=== PATIENT | female | born 1990 | race Caucasian/White ===

== ENCOUNTER 2023-07-21 19:35 | Outpatient (REF) | payer BC, SELFPAY ==
[2023-07-27 04:08] LABS: Age Gdln ACOG Testing Note (.); HPV Aptima Negative (Negative); IGP, Aptima HPV, rfx 16/18,45 Note (.)
== END 2023-07-21 19:36 | disposition home or self-care (01) ==
LOC: LAB 19:35
PROVIDERS: Visit Provider Obstetrics & Gynecology
DX: Z01.419 Encounter for gynecological examination (general) (routine) without abnormal findings (principal)
CPT/HCPCS: 87624; G0145

== ENCOUNTER 2024-07-25 21:26 | Outpatient (REF) | payer BC, SELFPAY ==
--- OUTSIDE RECORDS SUMMARY | 2024-07-25 21:29 | XMS_ITS | CCD ---
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 Name Role Phone PEPE JUAN Attending Unavailable MANJINDER ESTRADA Attending Unavailable DENNYS ., DR VARGAS Admitting Unavailable DENNYS ., DR VARGAS Attending Unavailable REQUEST, NONE LISTED Primary Care Unavaila ble DENNYS ., DR VARGAS Consulting Unavailable DENNYS ., DR VARGAS Admitting Unavailable DENNYS ., DR VARGAS Attending Unavailable REQUEST, DR NONE LISTED Primary Care Unavaila ble DENNYS ., DR VARGAS Consulting Unavailable DENNYS ., DR VARGAS Admitting Unavailable DENNYS ., DR VARGAS Attending Unavailable REQUEST, DR NONE LISTED Primary Care Unavaila ble DENNYS ., DR VARGAS Consulting Unavailable DENNYS ., DR VARGAS Admitting Unavailable DENNYS ., DR VARGAS Attending Unavailable REQUEST, DR NONE LISTED Primary Care Unavaila ble DENNYS ., DR VARGAS Consulting Unavailable ZIEBER, DR GOLD De Los Santos Consulting Unavailable DENNYS ., DR VARGAS Admitting Unavailable DENNYS ., DR VARGAS Attending Unavailable REQUEST, DR NONE LISTED Primary Care Unavaila ble DENNYS ., DR VARGAS Consulting Unavailable DENNYS ., DR VARGAS Admitting Unavailable DENNYS ., DR VARGAS Attending Unavailable REQUEST, DR NONE LISTED Primary Care Unavaila ble KARASIK ., DR GARCIA Consulting Unavailabl e DENNYS ., DR VARGAS Consulting Unavailable ZIEBER, DR GOLD De Los Santos Consulting Unavailable MANJINDER ESTRADA Consulting Unavailable REQUEST, DR RAMÍREZ LISTED Primary Care Unavaila ble MANJINDER ESTRADA Attending Unavailable MANJINDER ESTRADA Admitting Unavailable DENNYS ., DR VARGAS Admitting Unavailable DENNYS ., DR VARGAS Attending Unavailable KUNElvira, DR PEDRAZA Primary Care Unavailable DENNYS ., DR VARGAS Consulting Unavailable ZIEBER, DR GOLD De Los Santos Consulting Unavailable AURORA ., JODI Admitting Unavailable AURORA ., JODI Attending Unavailable REQUEST, DR NONE LISTED Primary Care Unavaila ble DENNYS ., DR VARGAS Admitting Unavailable DENNYS ., DR VARGAS Attending Unavailable KUNS, DR PEDRAZA Primary Care Unavailable DENNYS ., DR VARGAS Admitting Unavailable DENNYS ., DR VARGAS Attending Unavailable KUNS, DR PEDRAZA Primary Care Unavailable DENNYS ., DR VARGAS Consulting Unavailable DENNYS ., DR VARGAS Admitting Unavailable DENNYS ., DR VARGAS Attending Unavailable REQUEST, DR NONE LISTED Primary Care Unavaila ble DENNYS ., DR VARGAS Consulting Unavailable DENNYS ., DR VARGAS Consulting Unavailable REQUEST, DR NONE LISTED Primary Care Unavaila ble DENNYS ., DR VARGAS Attending Unavailable DENNYS ., DR VARGAS Admitting Unavailable ZIEBER, DR GOLD De Los Santos Consulting Unavailable DENNYS ., DR VARGAS Admitting Unavailable DENNYS ., DR VARGAS Attending Unavailable REQUEST, DR NONE LISTED Primary Care Unavaila ble DENNYS ., DR VARGAS Consulting Unavailable DENNYS ., DR VARGAS Admitting Unavailable DENNYS ., DR VARGAS Attending Unavailable KUNS, DR PEDRAZA Primary Care Unavailable DENNYS ., DR VARGAS Consulting Unavailable DENNYS ., DR VARGAS Admitting Unavailable DENNYS ., DR VARGSA Attending Unavailable KUNS, DR PEDRAZA Primary Care Unavailable ALVORDTON, DR SENIA Og Consulting Unavailable DENNYS ., DR VARGAS Consulting Unavailable DENNYS ., DR VARGAS Consulting Unavailable REQUEST, DR NONE LISTED Primary Care Unavaila ble DENNYS ., DR VARGAS Attending Unavailable DENNYS ., DR VARGAS Admitting Unavailable DENNYS ., DR VARGAS Admitting Unavailable DENNYS ., DR VARGAS Attending Unavailable REQUEST, DR NONE LISTED Primary Care Unavaila ble REQUEST, DR NONE LISTED Primary Care Unavaila ble NIRAV COOPER Admitting Unavailable NIRAV COOPER Attending Unavailable WEST, DR SENIA Og Consulting Unavailable DENNYS ., DR VARGAS Consulting Unavailable NIRAV COOPER Consulting Unavailable DENNYS ., DR VARGAS Admitting Unavailable DENNYS ., DR VARGAS Attending Unavailable REQUEST, DR NONE LISTED Primary Care Unavaila ble DENNYS ., DR VARGAS Consulting Unavailable ZIEBER, DR GOLD De Los Santos Consulting Unavailable DENNYS ., DR VARGAS Admitting Unavailable DENNYS ., DR VARGAS Attending Unavailable REQUEST, NONE LISTED Primary Care Unavaila ble DENNYS ., DR VARGAS Consulting Unavailable REQUEST, DR NONE LISTED Primary Care Unavaila ble DENNYS ., DR VARGAS Consulting Unavailable NIRAV COOPER Admitting Unavailable KENNETH, NIRAV Attending Unavailable ZIEBER, DR GOLD De Los Santos Consulting Unavailable NIRAV COOPER Consulting Unavailable DENNYS ., DR VARGAS Admitting Unavailable DENNYS ., DR VARGAS Attending Unavailable REQUEST, DR NONE LISTED Primary Care Unavaila ble DENNYS ., DR VARGAS Consulting Unavailable DENNYS ., DR VARGAS Admitting Unavailable DENNYS ., DR VARGAS Attending Unavailable REQUEST, DR NONE LISTED Primary Care Unavaila ble DENNYS ., DR VARGAS Consulting Unavailable REQUEST, DR NONE LISTED Primary Care Unavaila ble WINIFRED, JIAN Admitting Unavailable WINIFRED, JIAN Attending Unavailable ZIEBER, DR GOLD De Los Santos Consulting Unavailable GARRETT ., ÓSCAR Consulting Unavailable DENNYS ., DR VARGAS Admitting Unavailable DENYNS ., DR VARGAS Attending Unavailable REQUEST, DR NONE LISTED Primary Care Unavaila ble DENNYS ., DR VARGAS Consulting Unavailable DENNYS ., DR VARGAS Procedure Practitioner Unavail able NIRAV COOPER Consulting Unavailable BERNARD II, LIS Consulting Unavailable BOUBACAR, JENNIFFER Consulting Unavailable REQUEST, DR NONE LISTED Primary Care Unavaila ble KARASIK ., DR GARCIA Admitting Unavailabl e KARASIK ., DR GARCIA Attending Unavailabl e KARASIK ., DR GARCIA Consulting Unavailabl e WEST, DR SENIA Og Consulting Unavailable DENNYS ., DR VARGAS Consulting Unavailable ZIEBER, DR GOLD De Los Santos Consulting Unavailable DENNYS ., DR VARGAS Admitting Unavailable DENYNS ., DR VARGAS Attending Unavailable KUNS, DR PEDRAZA Primary Care Unavailable DENNYS ., DR VARGAS Consulting Unavailable DENNYS ., DR VARGAS Admitting Unavailable DENNYS ., DR VARGAS Attending Unavailable REQUEST, DR NONE LISTED Primary Care Unavaila ble DENNYS ., DR VARGAS Consulting Unavailable ZIEBER, DR GOLD De Los Santos Consulting Unavailable REQUEST, NONE LISTED Primary Care Unavaila ble KARASIK ., DR GARCIA Admitting Unavailabl e KARASIK ., DR GARCIA Attending Unavailabl e KARASIK ., DR GARCIA Consulting Unavailabl e DENNYS ., DR VARGAS Admitting Unavailable DENNYS ., DR VARGAS Attending Unavailable REQUEST, NONE LISTED Primary Care Unavaila zane KOCH ., DR VARGAS Consulting Unavailable DO Cale Monique Primary Care Provider [phone] Agnieszka, [employer] Sofy Suarez Emergency Provider 1( [phone] Sofy Aaron Attending Unavailable Sofy Aaron Admitting Unavailable Cale Monique Primary Care Unavailable DO Anselmo Rodney Attending Provider ALCIIA KOCH Attending Unavailable ALICIA KOCH Attending Unavailable CHINA PETER Attending Unavailable JODI SIMON Attending Unavailable YEN ROCHA Attending Unavailable Cale Monique DO Primary Care Provider China Peter NP Unavailable [phone] Allergies Allergy Classification Reported Allergen(s) Allergy Type Date of Onset Reaction(s) Facility (4 sources) Betamethasone; Translations: [BETAMETHASONE] Drug Allergy 1 Dermatitis, Swelling, Anaphylaxis [facility] Repository (1 source) Betamethasone Drug Allergy 3 [facility] Medications Current Medications Medication Drug Class(es) Dates Sig (Normalized) Sig (Original) amoxicillin 875 mg / clavulanate 125 mg oral tablet (2 sources) Penicillin-class Antibacterial Start: 04-15-2024 End: 04-25-2024 take 1 tablet by mouth in the morning amoxicillin-clav ulanate (Augmentin) 875-125 MG tablet Indications: Acute cough , Acute non-recurrent maxillary sinusitis Take 1 tablet (875 mg) by mouth in the morning and 1 tablet (875 mg) before bedtime. Do all this for 10 days. 20 tablet 04/15/2024 04/25/2024 Active citalopram 20 mg oral tablet (5 sources) Serotonin Reuptake Inhibitor Start: 07-21-2023 End: 07-20-2024 Citalopram Active 20 MG PO December 14, 2023 12:00am ibuprofen 200 mg oral capsule (9 sources) Nonsteroidal Anti-inflammatory Drug Start: 12-14-2023 take 1 capsule by mouth every six hours Ibuprofen (Motrin Ib) 200 mg capsule Active 200 MG PO Every 6 hours December 14, 2023 12:00am Start: 03-19-2023 take 1 tablet by bert th three times daily as needed ibuprofen 800 MG tablet Take 800 mg by mouth 3 (three) times a day as needed 03/19/2023 Active Start: 05-12-2018 End: 07-28-2018 take 600 mg by mouth every six hours Ibuprofen Discontinued 600 MG PO Every 6 hours 60 May 12, 2018 1:00am July 28, 2018 10:06pm Powderly (No Known Home Meds) (1 source) Start: 12-11-2023 Powderly (No Kn own Home Meds) Active December 11, 2023 12:00am Completed/Discontinued Medications Medication Drug Class(es) Dates Sig (Normalized) Sig (Original) acetaminophen 500 mg oral tablet (4 sources) Start: 05-12-2018 End: 07-28-2018 take 1000 mg by mouth every six hours Acetaminophen Discontinued 1000 MG PO Q6H 30 May 12, 2018 1:00am July 28, 2018 10:06pm acetaminophen 325 mg / HYDROcodone bitartrate 5 mg oral tablet (4 sources) Opioid Agonist Start: 05-12-2018 End: 07-28-2018 take 1 tablet by mouth every six hours Hydrocodone-Acetami nophen ([place]) 5-325 mg tablet Discontinued 1 TAB PO Q6H 14 3 May 12, 2018 July 28, 2018 10:06pm biotin 2.5 mg oral capsule (8 sources) Start: 07-28-2018 End: 12-11-2023 take 2500 ug by mouth once daily Biotin Discontinued 2500 MCG PO Daily July 28, 2018 1:00am December 11, 2023 10:39am Start: 04-23-2018 End: 05-12-2018 Biotin Discontinued April 23, 2018 12:00am May 12, 2018 3:25am Pnv Cmb#95-Ferrous Fumarate-Fa () 28 mg iron- 800 mcg Tablet (4 sources) Start: 04-23-2018 End: 05-12-2018 take 1 tablet by mouth once daily Pnv Cmb#95-Ferrous Fumarate-Fa () 28 mg iron- 800 mcg Tablet Discontinued 1 TAB PO Daily April 23, 2018 12:00am May 12, 2018 3:25am [id number]-Rzuhi-Omeg3s (4 sources) Start: 07-28-2018 End: 12-11-2023 take 1 tablet by mouth once daily 113-Rsjp-Xnuux-Omeg3s Discontinued 1 TAB PO Daily July 28, 2018 1:00am December 11, 2023 10:39am Problems Active Problems Problem Classification Problem Date Documented Date Episodic/Chronic Abdominal pain (9 sources) Pelvic and perineal pain; Translations: [Unspecified abdominal pain] Onset: 05-08-2022 Episodic Cardiac dysrhythmias (4 sources) Palpitations; Translations: [Palpitations] Onset: 08-11-2022 Episodic Conditions associated with dizziness or vertigo (2 sources) Dizziness; Translations: [Dizziness] Onset: 09-15-2022 Episodic Deficiency and other anemia (4 sources) Anemia, unspecified; Translations: [ANEMIA UNSPECIFIED] Onset: 08-31-2022 Episodic Early or threatened labor (4 sources) labor without delivery, third trimester; Translations: [ LABOR W/O DELIVERY 3RD TRI] Onset: 09-03-2022 Episodic Hemorrhage during ; abruptio placenta; placenta previa (12 sources) Antepartum hemorrhage, unspecified, unspecified trimester; Translations: [Threatened ] Onset: 03-15-2022 Episodic Hypertension complicating ; childbirth and the puerperium (4 sources) Unspecified pre-eclampsia, third trimester; Translations: [UNS PRE-ECLAMPSIA THIRD TRIMESTER] Onset: 09-28-2022 Episodic Immunizations and screening for infectious disease (3 sources) Encounter for screening for infections with a predominantly sexual mode of transmission; Translations: [Encounter for screening for human papillomavirus (HPV)] Onset: 04-08-2022 Episodic Joint disorders and dislocations; trauma-related (7 sources) Derangement of right knee; Translations: [Unspecified internal derangement of right knee] 12-14-2023 Chronic Menstrual disorders (4 sources) Irregular menstruation, unspecified; Translations: [IRREGULAR MENSTRUATION UNSPECIFIED] Onset: 04-05-2022 Chronic Miscellaneous mental health disorders (3 sources) depression; Translations: [ depression] 12-14-2023 Episodic Other complications of ; puerperium affecting management of mother (1 source) Endocrine, nutritional and metabolic diseases complicating childbirth; Translations: [ENDOCRN NUTR MET DZ COMP CHILDBIRTH] Onset: 10-18-2022 Episodic Other complications of ; puerperium affecting management of mother (4 sources) Maternal care for other (suspected) abnormality and damage, not applicable or unspecified; Translations: [MAT CARE OTH ABN DAMGE NA/UNS] Onset: 08-19-2022 Episodic Other complications of (1 source) Obesity complicating , second trimester; Translations: [OBESITY COMP SECOND TRI] Onset: 05-10-2022 Chronic Other complications of (2 sources) Endocrine, nutritional and metabolic diseases complicating , third trimester; Translations: [ENDOCRN NUTR MET DZ COMP PG 3RD TRI] Onset: 09-30-2022 Episodic Other complications of (1 source) Maternal care for other known or suspected poor growth, third trimester, not applicable or unspecified; Translations: [MAT CARE OTH WY FTL GRTH 3RD TM UNS] Onset: 10-18-2022 Episodic Other complications of (5 sources) Other specified related conditions, third trimester; Translations: [OTH SPEC PREG RELATED COND 3RD TRI] Onset: 09-07-2022 Episodic Other complications of (1 source) Supervision of with other poor reproductive or obstetric history, third trimester; Translations: [SUP PG OTH POOR REPROD/OB HX 3RD TM] Onset: 10-01-2022 Episodic Other complications of (5 sources) Supervision of other high risk pregnancies, third trimester; Translations: [SUP OTH HIGH RISK 3RD TRI] Onset: 09-08-2022 Episodic Other female genital disorders (1 source) Other specified noninflammatory disorders of vagina; Translations: [OTH SPEC NONINFLAMMATORY D/O VAGINA] Onset: 08-01-2022 Episodic Other lower respiratory disease (2 sources) Cough; Translations: [Acute cough] 04-15-2024 Episodic Other non-traumatic joint disorders (1 source) Pain in right knee; Translations: [Pain in right knee] Onset: 12-11-2023 Episodic Other nutritional; endocrine; and metabolic disorders (1 source) Obesity, unspecified; Translations: [OBESITY UNSPECIFIED] Onset: 05-10-2022 Chronic Other and delivery including normal (20 sources) Encounter for routine follow-up; Translations: [Single live ] Onset: 03-07-2022 Episodic Other screening for suspected conditions (not mental disorders or infectious disease) (15 sources) Abnormal electrocardiogram [ECG] [EKG]; Translations: [Encounter for other screening follow-up] Onset: 04-08-2022 Episodic Other upper respiratory infections (2 sources) Acute maxillary sinusitis; Translations: [Acute maxillary sinusitis, unspecified] 04-15-2024 Episodic Previous (1 source) Maternal care for low transverse scar from previous delivery; Translations: [MAT CARE LW TRANS SCAR PREV C/S DEL] Onset: 10-18-2022 Episodic Residual codes; unclassified (1 source) 37 weeks gestation of ; Translations: [37 WEEKS GESTATION OF ] Onset: 10-18-2022 Episodic Residual codes; unclassified (1 source) Personal history of other specified conditions; Translations: [PERSONAL HISTORY OTH SPEC CONDITION] Onset: 10-18-2022 Episodic Residual codes; unclassified (1 source) Family history of other endocrine, nutritional and metabolic diseases; Translations: [FAM HX OTH ENDOCRN NUTRIT METAB DZ] Onset: 10-18-2022 Episodic Residual codes; unclassified (1 source) Type A blood, Rh negative; Translations: [TYPE A BLOOD RH NEGATIVE] Onset: 10-18-2022 Episodic Residual codes; unclassified (1 source) 36 weeks gestation of ; Translations: [36 WEEKS GESTATION OF ] Onset: 10-01-2022 Episodic Residual codes; unclassified (1 source) 35 weeks gestation of ; Translations: [35 WEEKS GESTATION OF ] Onset: 09-24-2022 Episodic Residual codes; unclassified (5 sources) Personal history of other complications of , childbirth and the puerperium; Translations: [PERS HX OTH COMP PG CHILDBIRTH AND PP] Onset: 09-02-2022 Episodic Residual codes; unclassified (1 source) 34 weeks gestation of ; Translations: [34 WEEKS GESTATION OF ] Onset: 09-18-2022 Episodic Residual codes; unclassified (1 source) 33 weeks gestation of ; Translations: [33 WEEKS GESTATION OF ] Onset: 09-13-2022 Episodic Residual codes; unclassified (1 source) 31 weeks gestation of ; Translations: [31 WEEKS GESTATION OF ] Onset: 08-24-2022 Episodic Residual codes; unclassified (1 source) Unspecified blood type, Rh negative; Translations: [UNSPECIFIED BLOOD TYPE RH NEGATIVE] Onset: 08-16-2022 Episodic Residual codes; unclassified (1 source) 29 weeks gestation of ; Translations: [29 WEEKS GESTATION OF ] Onset: 08-16-2022 Episodic Residual codes; unclassified (4 sources) RhD negative; Translations: [Unspecified blood type, Rh negative] 05-12-2018 Episodic Residual codes; unclassified (4 sources) H/O: chemotherapy; Translations: [Personal history of antineoplastic chemotherapy] 05-12-2018 Episodic Sprains and strains (4 sources) Sprain of right knee; Translations: [Sprain of unspecified site of right knee, initial encounter] 12-11-2023 Episodic Thyroid disorders (1 source) Disorder of thyroid, unspecified; Translations: [DISORDER OF THYROID UNSPECIFIED] Onset: 10-18-2022 Episodic Unclassified (2 sources) follow up echo and Holter monitor Onset: 09-15-2022 Past or Other Problems Problem Classification Problem Date Documented Da te Episodic/Chronic Other complications of (1 source) Other specified related conditions, unspecified trimester; Translations: [OTH SPEC PREG RELATED COND UNS TRI] Onset: 07-15-2022 Episodic Other complications of (1 source) Other specified related conditions, second trimester; Translations: [OTH SPEC PREG RELATED COND 2ND TRI] Onset: 05-10-2022 Episodic Residual codes; unclassified (1 source) 16 weeks gestation of ; Translations: [16 WEEKS GESTATION OF ] Onset: 05-10-2022 Episodic Results Test Name Value Interpretation Reference Range Facility XR knee RT 4V*on 12-11-2023 XR knee RT 4V* [place] [address] XRay Report Signed Patient: Corbin Umana MR#: [id number] : 1990 Acct:[id number] Age/Sex: 33 / F ADM Date: 12/11/23 Loc: ER Room: Type: [facility] ER Attending Dr: Copies to: CORY Rangel Ordering Provider: CORY Rangel Date of Service: 12/11/23 XR/XR knee RT 4V*: Extremity Injury, Lower 4 views RIGHT knee plain film COMPARISON: None HISTORY: RIGHT knee injury. Anterior knee pain ACUTE FINDINGS: No acute findings DEGENERATIVE CHANGE: Unremarkable SOFT TISSUE FINDINGS: Unremarkable JOINT EFFUSION: None POSTOP CHANGES: None BONE MINERALIZATION: Adequate XR/XR knee RT 4V* IMPRESSION: No acute findings Impression dictated by: Armani Tierney M.D.12/11/2023 12:03 PM Dictation Location: [place] [address] Transcribed By: [facility] 12/11/23 1203 Dictated By: Armani Tierney DO 12/11/23 1202 Signed By: 12/11/23 1203 Normal [facility] CBC AUTO DIFFon 10-01-2022 BASO # 0.0 103/ul Normal 0.0-0.1 [facility] Comment on above: Performed By: #### A 1C #### [facility] [address] [place] [address] Dr. Jeri Connell Basophils/100 WBC (Bld) 0.4 % Normal 0.2-2.0 [facility] Comment on above: Performed By: #### A 1C #### [facility] [address] [address] [address] Jeri Connell EO # 0.1 103/ul Normal 0.0-0.7 [facility] Comment on above: Performed By: #### A 1C #### [facility] [address] [address] [address] Jeri Connell Eosinophils/100 WBC (Bld) 0.8 % Critically low 0.9-7.0 [facility] Comment on above: Performed By: #### A 1C #### [facility] [address] [address] [address] Jeri Connell Erythrocyte distribution width (RBC) [Ratio] 15.1 % Critically high 11.0-15.0 [facility] Comment on above: Performed By: #### A 1C #### [facility] [address] [place] [address] Dr. Jeri Connell Hematocrit (Bld) [Volume fraction] 24.8 % Critically low 36.0-48.0 [facility] Comment on above: Performed By: #### A 1C #### [facility] [address] [address] [address] Jeri Connell Hemoglobin (Bld) [Mass/Vol] 8.4 g/dL Critically low 12.0-16.0 [facility] Comment on above: Performed By: #### A 1C #### [facility] [address] [address] [address] Jeri Connell IG # 0.04 10e3/ul Critically high 0.00-0.03 [facility] Comment on above: Performed By: #### A 1C #### [facility] [address] [address] [address] Jeri Connell IG % 0.5 % Normal 0.0-0.5 [facility] Comment on above: Performed By: #### A 1C #### [facility] [address] [place] [address] Dr. Jeri Connell LYMPH # 1.3 103/ul Normal 1.2-3.8 [facility] Comment on above: Performed By: #### A 1C #### [facility] [address] [place] [address] Dr. Jeri Connell Lymphocytes/100 WBC (Bld) 16.9 % Critically low 20.5-60.0 [facility] Comment on above: Performed By: #### A 1C #### [facility] [address] [place] [address] Dr. Jeri Connell MANUAL DIFF REQ NO Normal [facility] Comment on above: Performed By: #### A 1C #### [facility] [address] [address] [address] Jeri Connell MCH (RBC) [Entitic mass] 32.2 pg Normal 26.7-34.0 [facility] Comment on above: Performed By: #### A 1C #### [facility] [address] [place] [address] Dr. Jeri Connell MCHC (RBC) [Mass/Vol] 33.9 g/dL Normal 29.9-35.2 [facility] Comment on above: Performed By: #### A 1C #### [facility] [address] [address] [address] Jeri Connell MCV (RBC) [Entitic vol] 95.0 fL Normal 81.0-99.0 [facility] Comment on above: Performed By: #### A 1C #### [facility] [address] [address] [address] Jeri Connell MONO # 0.5 103/ul Normal 0.3-0.8 [facility] Comment on above: Performed By: #### A 1C #### [facility] [address] [place] [address] Dr. Jeri Connell Monocytes/100 WBC (Bld) 6.5 % Normal 1.7-12.0 [facility] Comment on above: Performed By: #### A 1C #### [facility] [address] [place] [address] Dr. Jeri Connell NEUT # 6.0 103/ul Normal 1.4-6.5 [facility] Comment on above: Performed By: #### A 1C #### [facility] [address] [place] [address] Dr. Jeri Connell Neutrophils/100 WBC (Bld) 74.9 % Normal 43.0-75.0 [facility] Comment on above: Performed By: #### A 1C #### [facility] [address] [place] [address] Dr. Jeri Connell Platelet mean volume (Bld) [Entitic vol] 10.8 fL Normal 9.5-13.5 [facility] Comment on above: Performed By: #### A 1C #### [facility] [address] [place] [address] Dr. Jeri Connell PLT 183 103/ul Normal 150-450 [facility] Comment on above: Performed By: #### A 1C #### [facility] [address] [place] [address] Dr. Jeri Connell RBC 2.61 106/ul Critically low 4.20-5.40 [facility] Comment on above: Performed By: #### A 1C #### [facility] [address] [place] [address] Dr. Jeri Connell WBC 7.9 103/ul Normal 4.0-11.0 [facility] Comment on above: Performed By: #### A 1C #### [facility] [address] [place] [address] Dr. Jeri Connell CBC AUTO DIFFon 09-30-2022 BASO # 0.0 103/ul Normal 0.0-0.1 [facility] Comment on above: Performed By: #### G LU1HR #### [facility] [address] [place] [address] Dr. Jeri Connell Basophils/100 WBC (Bld) 0.3 % Normal 0.2-2.0 [facility] Comment on above: Performed By: #### G LU1HR #### [facility] [address] [place] [address] Dr. Jeri Connell EO # 0.1 103/ul Normal 0.0-0.7 [facility] Comment on above: Performed By: #### G LU1HR #### [facility] [address] [place] [address] Dr. Jeri Connell Eosinophils/100 WBC (Bld) 0.6 % Critically low 0.9-7.0 [facility] Comment on above: Performed By: #### G LU1HR #### [facility] [address] [place] [address] Dr. Jeri Connell Erythrocyte distribution width (RBC) [Ratio] 14.6 % Normal 11.0-15.0 [facility] Comment on above: Performed By: #### G LU1HR #### [facility] [address] [place] [address] Dr. Jeri Connell Hematocrit (Bld) [Volume fraction] 32.9 % Critically low 36.0-48.0 [facility] Comment on above: Performed By: #### G LU1HR #### [facility] [address] [place] [address] Dr. Jeri Connell Hemoglobin (Bld) [Mass/Vol] 11.3 g/dL Critically low 12.0-16.0 [facility] Comment on above: Performed By: #### G LU1HR #### [facility] [address] [address] [address] Jeri Connell IG # 0.05 10e3/ul Critically high 0.00-0.03 [facility] Comment on above: Performed By: #### G LU1HR #### [facility] [address] [place] [address] Dr. Jeri Connell IG % 0.5 % Normal 0.0-0.5 [facility] Comment on above: Performed By: #### G LU1HR #### [facility] [address] [address] [address] Jeri Connell LYMPH # 1.7 103/ul Normal 1.2-3.8 [facility] Comment on above: Performed By: #### G LU1HR #### [facility] [address] [place] [address] Dr. Jeri Connell Lymphocytes/100 WBC (Bld) 18.2 % Critically low 20.5-60.0 [facility] Comment on above: Performed By: #### G LU1HR #### [facility] [address] [place] [address] Dr. Jeri Connell MANUAL DIFF REQ NO Normal [facility] Comment on above: Performed By: #### G LU1HR #### [facility] [address] [place] [address] Dr. Jeri Connell MCH (RBC) [Entitic mass] 31.7 pg Normal 26.7-34.0 [facility] Comment on above: Performed By: #### G LU1HR #### [facility] [address] [place] [address] Dr. Jeri Connell MCHC (RBC) [Mass/Vol] 34.3 g/dL Normal 29.9-35.2 [facility] Comment on above: Performed By: #### G LU1HR #### [facility] [address] [place] [address] Dr. Jeri Connell MCV (RBC) [Entitic vol] 92.4 fL Normal 81.0-99.0 [facility] Comment on above: Performed By: #### G LU1HR #### [facility] [address] [place] [address] Dr. Jeri Connell MONO # 0.7 103/ul Normal 0.3-0.8 [facility] Comment on above: Performed By: #### G LU1HR #### [facility] [address] [place] [address] Dr. Jeri Connell Monocytes/100 WBC (Bld) 7.1 % Normal 1.7-12.0 [facility] Comment on above: Performed By: #### G LU1HR #### [facility] [address] [place] [address] Dr. Jeri Connell NEUT # 7.0 103/ul Critically high 1.4-6.5 [facility] Comment on above: Performed By: #### G LU1HR #### [facility] [address] [place] [address] Dr. Jeri Connell Neutrophils/100 WBC (Bld) 73.3 % Normal 43.0-75.0 [facility] Comment on above: Performed By: #### G LU1HR #### [facility] [address] [place] [address] Dr. Jeri Connell Platelet mean volume (Bld) [Entitic vol] 10.8 fL Normal 9.5-13.5 [facility] Comment on above: Performed By: #### G LU1HR #### [facility] [address] [place] [address] Dr. Jeri Connell PLT 226 103/ul Normal 150-450 [facility] Comment on above: Performed By: #### G LU1HR #### [facility] [address] [place] [address] Dr. Jeri Connell RBC 3.56 106/ul Critically low 4.20-5.40 [facility] Comment on above: Performed By: #### G LU1HR #### [facility] [address] [place] [address] Dr. Jeri Connell WBC 9.6 103/ul Normal 4.0-11.0 [facility] Comment on above: Performed By: #### G LU1HR #### [facility] [address] [place] [address] Dr. Jeri Connell CULTURE URINEon 09-30-2022 CULTURE URINE Culture Observations : NO GROWTH. Normal [facility] Comment on above: Performed By: #### U RCX #### [facility] [address] [place] [address] Dr. Jeri Connell DRUG SCREEN RAPID (URINE)on 09-30-2022 AMP Negative Normal NEGATIVE [facility] Comment on above: Performed By: #### D RUGRPD #### [facility] [address] [place] [address] Dr. Jeri Connell BAR Negative Normal NEGATIVE [facility] Comment on above: Performed By: #### D RUGRPD #### [facility] [address] [place] [address] Dr. Jeri Connell BUP Negative Normal NEGATIVE [facility] Comment on above: Performed By: #### D RUGRPD #### [facility] [address] [place] [address] Dr. Jeri Connell BZO Negative Normal NEGATIVE [facility] Comment on above: Performed By: #### D RUGRPD #### [facility] [address] [place] [address] Dr. Jeri Connell PATRICIA Negative Normal NEGATIVE [facility] Comment on above: Performed By: #### D RUGRPD #### [facility] [address] [place] [address] Dr. Jeri Connell CUT-OFFS SEE BELOW Normal [facility] Comment on above: Result Comment: AMP (Amphetamine): 500ng/mL, BAR (Barbituates): 200 ng/mL, BZO (Benzodiazepines): 150 ng/mL, BUP (Buprenorphine): 10 ng/mL, PATRICIA (Cocaine): 150 ng/mL, mAMP (Methamphetamine): 500 ng/mL, MTD (Methadone): 200 ng/mL, OPI (Opiates): 100 ng/mL, OXY (Oxycodone): 100 ng/mL, PCP (Phencyclidine): 25 ng/mL, PPX (Propoxyphene): 300 ng/mL, THC (Cannabinoids): 50 ng/mL, TCA (Trycyclic Antidepressants): 300 ng/mL Performed By: #### D RUGRPD #### [facility] [address] [place] [address] Dr. Jeri Connell DRUG CUT HEADER DRUG CLASS TEST SYSTEM CUT-OFF CONCENTRATIONS ARE FOLLOWS: Normal [facility] Comment on above: Performed By: #### D RUGRPD #### [facility] [address] [place] [address] Dr. Jeri Connell mAMP Negative Normal NEGATIVE [facility] Comment on above: Performed By: #### D RUGRPD #### [facility] [address] [place] [address] Dr. Jeri Connell MTD Negative Normal NEGATIVE [facility] Comment on above: Performed By: #### D RUGRPD #### [facility] [address] [place] [address] Dr. Jeri Connell OPI Negative Normal NEGATIVE [facility] Comment on above: Performed By: #### D RUGRPD #### [facility] [address] [place] [address] Dr. Jeri Connell OXY Negative Normal NEGATIVE [facility] Comment on above: Performed By: #### D RUGRPD #### [facility] [address] [place] [address] Dr. Jeri Connell PCP Negative Normal NEGATIVE [facility] Comment on above: Performed By: #### D RUGRPD #### [facility] [address] [place] [address] Dr. Jeri Connell PPX Negative Normal NEGATIVE [facility] Comment on above: Performed By: #### D RUGRPD #### [facility] [address] [place] [address] Dr. Jeri Connell TCA Negative Normal NEGATIVE [facility] Comment on above: Performed By: #### D RUGRPD #### [facility] [address] [place] [address] Dr. Jeri Connell THC Negative Normal NEGATIVE [facility] Comment on above: Performed By: #### D RUGRPD #### [facility] [address] [place] [address] Dr. Jeri Connell TYPE AND SCREENon 09-30-2022 TYPE AND SCREEN Antibody Screen POSITIVE Blood Bank Notes probable anti-d due to rhig admin. at 28weeks, further work up at physicians Blood Bank Notes request ABO Rh Typing A Rh Negative Normal [facility] Comment on above: Performed By: #### T NS #### [facility] [address] [place] [address] Dr. Jeri Connell UA (CLEAN/CATCH) TREAD CUTTER/MICRO I F IND.on 09-30-2022 Bilirubin Ql (U) Negative Normal NEGATIVE [facility] Comment on above: Performed By: #### A 1C #### [facility] [address] [place] [address] Dr. Jeri Connell Clarity (U) CLEAR Normal CLEAR [facility] Comment on above: Performed By: #### A 1C #### [facility] [address] [place] [address] Dr. Jeri Connell Color (U) LT. YELLOW Normal YELLOW [facility] Comment on above: Performed By: #### A 1C #### [facility] [address] [place] [address] Dr. Jeri Connell Glucose Ql (U) Negative Normal NEGATIVE [facility] Comment on above: Performed By: #### A 1C #### [facility] [address] [place] [address] Dr. Jeri Connell Hemoglobin Ql (U) Negative Normal NEGATIVE [facility] Comment on above: Performed By: #### A 1C #### [facility] [address] [place] [address] Dr. Jeri Connell Ketones Ql (U) Negative Normal NEGATIVE [facility] Comment on above: Performed By: #### A 1C #### [facility] [address] [place] [address] Dr. Jeri Connell LEUKOCYTES MODERATE Abnormal NEGATIVE [facility] Comment on above: Performed By: #### A 1C #### [facility] [address] [place] [address] Dr. Jeri Connell Nitrite Ql (U) Negative Normal NEGATIVE [facility] Comment on above: Performed By: #### A 1C #### [facility] [address] [place] [address] Dr. Jeri Connell pH (U) 6.0 [pH] Normal 5-9 [facility] Comment on above: Performed By: #### A 1C #### [facility] [address] [place] [address] Dr. Jeri Connell SPEC GRAVITY 1.020 Normal 1.005-<=1.025 [facility] Comment on above: Performed By: #### A 1C #### [facility] [address] [place] [address] Dr. Jeri Connell UA PROTEIN Negative Normal NEGATIVE/ TRACE [facility] Comment on above: Performed By: #### A 1C #### [facility] [address] [place] [address] Dr. Jeri Connell UR MICRO IND INDICATED Normal [facility] Comment on above: Performed By: #### A 1C #### [facility] [address] [place] [address] Dr. Jeri Connell Urobilinogen Qn (U) 0.2 {Joshua'U}/dL Normal 0.2 - 1. 0 [facility] Comment on above: Performed By: #### A 1C #### [facility] [address] [place] [address] Dr. Jeri Connell URINE MICROSCOPIC ONLYon BACTERIA SMALL Abnormal NONE SEEN [facility] Comment on above: Performed By: #### A 1C #### [facility] [address] [place] [address] Dr. Jeri Connell Bacteria identified Cx Nom (U) INDICATED Normal [facility] Comment on above: Performed By: #### A 1C #### [facility] [address] [place] [address] Dr. Jeri Connell CA OX CRYSTALS RARE Normal [facility] Comment on above: Performed By: #### A 1C #### [facility] [address] [place] [address] Dr. Jeri Connell CAST NONE SEEN Normal NONE SEEN [facility] Comment on above: Performed By: #### A 1C #### [facility] [address] [place] [address] Dr. Jeri Connell Crystals LM Nom (Urine sed) SEEN Abnormal NONE SEEN [facility] Comment on above: Performed By: #### A 1C #### [facility] [address] [place] [address] Dr. Jeri Connell Epithelial cells LM Ql (Urine sed) FEW Abnormal NONE SEEN /RARE [facility] Comment on above: Performed By: #### A 1C #### [facility] [address] [place] [address] Dr. Jeri Connell MUCOUS NONE SEEN Normal NONE SEEN [facility] Comment on above: Performed By: #### A 1C #### [facility] [address] [place] [address] Dr. Jeri Connell RBC 0-2 Normal 0-2 [facility] Comment on above: Performed By: #### A 1C #### [facility] [address] [place] [address] Dr. Jeri Connell WBC 10-20 Abnormal NONE SEEN [facility] Comment on above: Performed By: #### A 1C #### [facility] [address] [place] [address] Dr. Jeri Connell US PREG BIOPHY W NON STRESSo n 09-27-2022 US PREG BIOPHY W NON STRESS EXAMINATION: US PREG BIOPHY W NON STRESS HISTORY: History of complication of , childbirth and/or puerperium COMPARISON: Ultrasound biophysical 09/17/2022 FINDINGS: BREATHING MOVEMENTS: 2.0 GROSS BODY MOVEMENTS: 2.0 TONE: 2.0 QUALITATIVE AMNIOTIC FLUID VOLUME: 2.0 PRESENTATION: CEPHALIC HEART RATE: 137.8 bpm bpm. AMNIOTIC FLUID VOLUME: 15.3 cm GESTATIONAL AGE: 36 weeks 1 days CONCLUSION: Total biophysical profile score 8.0. Electronically authenticated by: GOLD JEFF Date: 2022-09-27 09:35 Normal [facility] GROUP B STREP CULTUREon 08-27 S. agalactiae Ag Ql (Unsp spec) Culture Observations: NEGATIVE FOR GROUP B STREPTOCOCCUS. Normal [facility] Comment on above: Performed By: #### D RUGRPD #### [facility] [address] [address] [address] Jeri Connell PREG BIOPHY W NON STRESSo n 09-18-2022 US PREG BIOPHY W NON STRESS EXAMINATION: US PREG BIOPHY W NON STRESS HISTORY: History of complication of , childbirth and/or puerperium COMPARISON: Ultrasound biophysical 09/10/2022 FINDINGS: BREATHING MOVEMENTS: 2.0 GROSS BODY MOVEMENTS: 2.0 TONE: 2.0 QUALITATIVE AMNIOTIC FLUID VOLUME: 2.0 PRESENTATION: CEPHALIC HEART RATE: 145.9 bpm bpm. AMNIOTIC FLUID VOLUME: 14.7 cm GESTATIONAL AGE: 35 weeks 1 days CONCLUSION: Total biophysical profile score 8.0. Electronically authenticated by: GOLD JEFF Date: 2022-09-18 05:56 Normal [facility] US PREG GROWTHon 09-18-2022 US PREG GROWTH EXAMINATION: US PREG GROWTH HISTORY: Patient currently COMPARISON: Ultrasound growth 09/04/2022 FINDINGS: Heart Rate: 145.9 bpm Number: 1.0 Position: CEPHALIC Amniotic Fluid Volume: 14.7 cm Maximum Vertical Pocket: 4.7 cm BIOMETRY: BPD: 8.3 cm cm; 33 weeks 4 days HC: 31.0 cmcm; 34 weeks 4 days AC: 32.0 cm cm; 35 weeks 6 days FL: 7.0 cm cm; 35 weeks 6 days EFW: 2691.7 grams; 58% FL/AC: 21.9 FL/BPD: 84.0 HC/AC: 1.0 GESTATIONAL AGE: Age by EDC: 35 weeks 1 days BRAULIO by EDC: 10/21/2022 Age by US: 35 weeks 0 days BRAULIO by US: 10/22/2022 IMPRESSION: 1. Single live intrauterine with growth detailed above. Electronically authenticated by: GOLD JEFF Date: 2022-09-18 05:57 Normal [facility] Office Visiton 09-15-2022 Follow-up visit [id number] Corbin Umana 1990 F Date Provider Department Center 09/15/2022 PEPE BRAX[facility] Family History Problem Relation Age of Onset Coronary artery disease Maternal Grandmother Other Maternal Grandmother Hypertension Maternal Grandmother Atrial fibrillation Maternal Grandfather Other Maternal Grandfather Family Status - Relation Status Age at Maternal Grandmother Maternal Grandfather Level of Service:80524 [place] OFFICE/OUTPATIENT ESTABLISHED LOW MDM 20-29 MIN Reason for Visit and Comments: Palpitations [] Dizziness [] follow up echo and Holter monitor [Other] Normal [facility] US PREG BIOPHY W NON STRESSo n 09-13-2022 US PREG BIOPHY W NON STRESS EXAMINATION: US PREG BIOPHY W NON STRESS HISTORY: History of complication of , childbirth and/or puerperium COMPARISON: Ultrasound biophysical 09/03/2022 FINDINGS: BREATHING MOVEMENTS: 2.0 GROSS BODY MOVEMENTS: 2.0 TONE: 2.0 QUALITATIVE AMNIOTIC FLUID VOLUME: 2.0 PRESENTATION: CEPHALIC HEART RATE: 146.7 bpm bpm. AMNIOTIC FLUID VOLUME: 16.2 cm GESTATIONAL AGE: 34 weeks 1 days CONCLUSION: Total biophysical profile score 8.0. Electronically authenticated by: GOLD JEFF Date: 2022-09-13 09:04 Normal [facility] US PREG BIOPHY W NON STRESSo n 09-06-2022 US PREG BIOPHY W NON STRESS EXAMINATION: US PREG BIOPHY W NON STRESS HISTORY: History of complication of , childbirth and/or puerperium COMPARISON: Ultrasound biophysical 09/03/2022 FINDINGS: BREATHING MOVEMENTS: 2.0 GROSS BODY MOVEMENTS: 2.0 TONE: 2.0 QUALITATIVE AMNIOTIC FLUID VOLUME: 2.0 PRESENTATION: CEPHALIC HEART RATE: 149.2 bpm bpm. AMNIOTIC FLUID VOLUME: 12.2 cm GESTATIONAL AGE: 33 weeks 1 days CONCLUSION: Total biophysical profile score 8.0. Electronically authenticated by: GOLD JEFF Date: 2022-09-06 21:29 Normal [facility] CBC AUTO DIFFon 09-04-2022 BASO # 0.0 103/ul Normal 0.0-0.1 [facility] Comment on above: Performed By: #### C BC #### [facility] [address] [address] [address] Jeri Connell Basophils/100 WBC (Bld) 0.4 % Normal 0.2-2.0 [facility] Comment on above: Performed By: #### C BC #### [facility] [address] [address] [address] Jeri Connell EO # 0.1 103/ul Normal 0.0-0.7 [facility] Comment on above: Performed By: #### C BC #### [facility] [address] [place] [address] Dr. Jeri Connell Eosinophils/100 WBC (Bld) 0.6 % Critically low 0.9-7.0 [facility] Comment on above: Performed By: #### C BC #### [facility] [address] [place] [address] Dr. Jeri Connell Erythrocyte distribution width (RBC) [Ratio] 14.1 % Normal 11.0-15.0 [facility] Comment on above: Performed By: #### C BC #### [facility] [address] [place] [address] Dr. Jeri Connell Hematocrit (Bld) [Volume fraction] 31.3 % Critically low 36.0-48.0 [facility] Comment on above: Performed By: #### C BC #### [facility] [address] [place] [address] Dr. Jeri Connell Hemoglobin (Bld) [Mass/Vol] 10.7 g/dL Critically low 12.0-16.0 [facility] Comment on above: Performed By: #### C BC #### [facility] [address] [place] [address] Dr. Jeri Connell IG # 0.07 10e3/ul Critically high 0.00-0.03 [facility] Comment on above: Performed By: #### C BC #### [facility] [address] [place] [address] Dr. Jeri Connell IG % 0.8 % Critically high 0.0-0.5 [facility] Comment on above: Performed By: #### C BC #### [facility] [address] [place] [address] Dr. Jeri Connell LYMPH # 1.2 103/ul Normal 1.2-3.8 [facility] Comment on above: Performed By: #### C BC #### [facility] [address] [place] [address] Dr. Jeri Connell Lymphocytes/100 WBC (Bld) 14.2 % Critically low 20.5-60.0 [facility] Comment on above: Performed By: #### C BC #### [facility] [address] [place] [address] Dr. Jeri Connell MANUAL DIFF REQ NO Normal [facility] Comment on above: Performed By: #### C BC #### [facility] [address] [place] [address] Dr. Jeri Connell MCH (RBC) [Entitic mass] 31.5 pg Normal 26.7-34.0 [facility] Comment on above: Performed By: #### C BC #### [facility] [address] [place] [address] Dr. Jeri Connell MCHC (RBC) [Mass/Vol] 34.2 g/dL Normal 29.9-35.2 [facility] Comment on above: Performed By: #### C BC #### [facility] [address] [place] [address] Dr. Jeri Connell MCV (RBC) [Entitic vol] 92.1 fL Normal 81.0-99.0 [facility] Comment on above: Performed By: #### C BC #### [facility] [address] [place] [address] Dr. Jeri Connell MONO # 0.7 103/ul Normal 0.3-0.8 [facility] Comment on above: Performed By: #### C BC #### [facility] [address] [place] [address] Dr. Jeri Connell Monocytes/100 WBC (Bld) 8.2 % Normal 1.7-12.0 [facility] Comment on above: Performed By: #### C BC #### [facility] [address] [place] [address] Dr. Jeri Connell NEUT # 6.3 103/ul Normal 1.4-6.5 [facility] Comment on above: Performed By: #### C BC #### [facility] [address] [place] [address] Dr. Jeri Connell Neutrophils/100 WBC (Bld) 75.8 % Critically high 43.0-75.0 [facility] Comment on above: Performed By: #### C BC #### [facility] [address] [place] [address] Dr. Jeri Connell Platelet mean volume (Bld) [Entitic vol] 10.1 fL Normal 9.5-13.5 [facility] Comment on above: Performed By: #### C BC #### [facility] [address] [place] [address] Dr. Jeri Connell PLT 209 103/ul Normal 150-450 [facility] Comment on above: Performed By: #### C BC #### [facility] [address] [place] [address] Dr. Jeri Connell RBC 3.40 106/ul Critically low 4.20-5.40 [facility] Comment on above: Performed By: #### C BC #### [facility] [address] [place] [address] Dr. Jeri Connell WBC 8.3 103/ul Normal 4.0-11.0 [facility] Comment on above: Performed By: #### C BC #### [facility] [address] [place] [address] Dr. Jeri Connell LDHon 09-04-2022 LDH 128 U/L Normal 81-234 [facility] Comment on above: Performed By: #### D RUGRPD #### [facility] [address] [place] [address] Dr. Jeri Connell PROF 14(COMP METB)on 023 Albumin [Mass/Vol] 2.6 g/dL Critically low 3.4-5.0 [facility] Comment on above: Performed By: #### D RUGRPD #### [facility] [address] [place] [address] Dr. Jeri Connell Albumin/Globulin [Mass ratio] 0.7 {ratio} Normal [facility] Comment on above: Performed By: #### D JAMAALRPD #### [facility] [address] [place] [address] Dr. Jeri Connell ALP [Catalytic activity/Vol] 96 U/L Normal 46-116 [facility] Comment on above: Performed By: #### D RUGRPD #### [facility] [address] [address] [address] Jeri Connell ALT [Catalytic activity/Vol] 14 U/L Normal 14-59 [facility] Comment on above: Performed By: #### D RUGRPD #### [facility] [address] [address] [address] Jeri Connell Anion gap [Moles/Vol] 11.7 mmol/L Normal [facility] Comment on above: Performed By: #### D RUGRPD #### [facility] [address] [place] [address] Dr. Jeri Connell AST [Catalytic activity/Vol] 11 U/L Critically low 15-37 [facility] Comment on above: Performed By: #### D RUGRPD #### [facility] [address] [place] [address] Dr. Jeri Connell Bilirubin [Mass/Vol] 0.2 mg/dL Normal 0.2-1.0 [facility] Comment on above: Performed By: #### D RUGRPD #### [facility] [address] [place] [address] Dr. Jeri Connell Calcium [Mass/Vol] 8.2 mg/dL Critically low 8.5-10.1 [facility] Comment on above: Performed By: #### D RUGRPD #### [facility] [address] [place] [address] Dr. Jeri Connell Chloride [Moles/Vol] 107 mmol/L Normal 98-107 [facility] Comment on above: Performed By: #### D RUGRPD #### [facility] [address] [place] [address] Dr. Jeri Connell CO2 [Moles/Vol] 21.8 mmol/L Normal 21.0-32.0 [facility] Comment on above: Performed By: #### D RUGRPD #### [facility] [address] [place] [address] Dr. Jeri Connell Creatinine [Mass/Vol] 0.56 mg/dL Normal 0.55-1.02 [facility] Comment on above: Performed By: #### D RUGRPD #### [facility] [address] [place] [address] Dr. Jeri Connell EGFR-AF [place] >60 Normal >=60 [facility] Comment on above: Performed By: #### D RUGRPD #### [facility] [address] [address] [address] Jeri Connell EGFR-NON AF [place] >60 Normal >=60 [facility] Comment on above: Performed By: #### D RUGRPD #### [facility] [address] [place] [address] Dr. Jeri Connell Globulin (S) [Mass/Vol] 3.7 g/dL Normal [facility] Comment on above: Performed By: #### D RUGRPD #### [facility] [address] [place] [address] Dr. Jeri Connell Glucose [Mass/Vol] 102 mg/dL Normal 74-106 [facility] Comment on above: Performed By: #### D RUGRPD #### [facility] [address] [place] [address] Dr. Jeri Connell Potassium [Moles/Vol] 3.5 mmol/L Normal 3.5-5.1 [facility] Comment on above: Performed By: #### D RUGRPD #### [facility] [address] [place] [address] Dr. Jeri Connell Protein [Mass/Vol] 6.3 g/dL Critically low 6.4-8.2 [facility] Comment on above: Performed By: #### D RUGRPD #### [facility] [address] [place] [address] Dr. Jeri Connell Sodium [Moles/Vol] 137 mmol/L Normal 136-145 [facility] Comment on above: Performed By: #### D RUGRPD #### [facility] [address] [place] [address] Dr. Jeri Connell Urea nitrogen [Mass/Vol] 4.0 mg/dL Critically low 7.0-18.0 [facility] Comment on above: Performed By: #### D RUGRPD #### [facility] [address] [place] [address] Dr. Jeri Connell Urea nitrogen/Creatinine [Mass ratio] 7.1 mg/mg Normal [facility] Comment on above: Performed By: #### D RUGRPD #### [facility] [address] [place] [address] Dr. Jeri Connell PROTIMEon 09-04-2022 INR Coag (PPP) [Relative time] {INR} Normal [facility] Comment on above: Performed By: #### G LU1HR #### [facility] [address] [place] [address] Dr. Jeri Connell INR GUIDELINES SEE BELOW Normal [facility] Comment on above: Result Comment: SHANIKA RED INR: 2.0 - 3.0 CONDITIONS NOT LISTED BELOW 2.5 - 3.5 FOR PROSTHETIC HEART VALVE REPLACEMENT 2.5 - 3.5 RECURRENT THROMBOSIS Performed By: #### G LU1HR #### [facility] [address] [place] [address] Dr. Jeri Connell PT Coag (PPP) [Time] 9.8 s Normal 9.0-11.6 [facility] Comment on above: Performed By: #### G LU1HR #### [facility] [address] [place] [address] Dr. Jeri Connell PTTon 09-04-2022 aPTT Coag (Bld) [Time] 23.8 s Normal 22.3-36.2 [facility] Comment on above: Performed By: #### G LU1HR #### [facility] [address] [place] [address] Dr. Jeri Connell UA (CLEAN/CATCH) TREAD CUTTER/MICRO I F IND.on 09-04-2022 Bilirubin Ql (U) Negative Normal NEGATIVE [facility] Comment on above: Performed By: #### D RUGRPD #### [facility] [address] [place] [address] Dr. Jeri Connell Clarity (U) CLEAR Normal CLEAR [facility] Comment on above: Performed By: #### D RUGRPD #### [facility] [address] [address] [address] Jeri Connell Color (U) LT. YELLOW Normal YELLOW [facility] Comment on above: Performed By: #### D RUGRPD #### [facility] [address] [place] [address] Dr. Jeri Connell Glucose Ql (U) Negative Normal NEGATIVE [facility] Comment on above: Performed By: #### D RUGRPD #### [facility] [address] [place] [address] Dr. Jeri Connell Hemoglobin Ql (U) Negative Normal NEGATIVE [facility] Comment on above: Performed By: #### D RUGRPD #### [facility] [address] [place] [address] Dr. Jeri Connell Ketones Ql (U) Negative Normal NEGATIVE [facility] Comment on above: Performed By: #### D RUGRPD #### [facility] [address] [place] [address] Dr. Jeri Connell LEUKOCYTES Negative Normal NEGATIVE [facility] Comment on above: Performed By: #### D RUGRPD #### [facility] [address] [place] [address] Dr. Jeri Connell Nitrite Ql (U) Negative Normal NEGATIVE [facility] Comment on above: Performed By: #### D RUGRPD #### [facility] [address] [place] [address] Dr. Jeri Connell pH (U) 7.0 [pH] Normal 5-9 [facility] Comment on above: Performed By: #### D RUGRPD #### [facility] [address] [address] [address] Jeri Connell SPEC GRAVITY 1.010 Normal 1.005-<=1.025 [facility] Comment on above: Performed By: #### D RUGRPD #### [facility] [address] [place] [address] Dr. Jeri Connell UA PROTEIN Negative Normal NEGATIVE/ TRACE [facility] Comment on above: Performed By: #### D RUGRPD #### [facility] [address] [address] [address] Jeri Connell UR MICRO IND NOT INDICATED Normal [facility] Comment on above: Performed By: #### D RUGRPD #### [facility] [address] [address] [address] Jeri Connell Urobilinogen Qn (U) 0.2 {Joshua'U}/dL Normal 0.2 - 1. 0 [facility] Comment on above: Performed By: #### D RUGRPD #### [facility] [address] [address] [address] Jeri Cnonell URIC ACID SERUMon 09-04-2022 Urate [Mass/Vol] 4.3 mg/dL Normal 2.6-6.0 [facility] Comment on above: Performed By: #### D RUGRPD #### [facility] [address] [place] [address] Dr. Jeri Connell US PREG CERVICAL LENGTHon US PREG CERVICAL LENGTH EXAMINATION: US PREG GROWTH, US PREG CERVICAL LENGTH HISTORY: History of complication of , childbirth and/or puerperium COMPARISON: 07/08/2022 FINDINGS: Heart Rate: 141.4 bpm Amniotic Fluid Volume: 17.6 cm Number: 1.0 Position: Cephalic presentation, longitudinal lie Cervical length, 4.2 cm, closed Maximum Vertical Pocket: 6.1 cm cm 2.8 cm cm 5.3 cm cm 3.3 cm cm BIOMETRY: BPD: 8.0 cm cm; 32 weeks 1 days; 16% HC: 30.1 cmcm; 33 weeks 2 days, 16% AC: 29.0 cm cm; 33 weeks 0 days, 43% FL: 6.4 cm cm; 33 weeks 0 days; 30.8 % % EFW: 2086.4 grams, 4 lbs. 10 oz., 31% FL/AC: 22.0 FL/BPD: 79.7 HC/AC: 1.0 GESTATIONAL AGE: Age by EDC: 33 weeks 2 days BRAULIO by EDC: 10/21/2022 Age by US: 32 weeks 6 days BRAULIO by US: 10/24/2022 IMPRESSION: Normal interval growth Closed cervix measuring 4.2 cm Electronically authenticated by: SENAI JENNIFER Date: 2022-09-04 13:01 Normal [facility] CBC AUTO DIFFon 08-31-2022 BASO # 0.0 103/ul Normal 0.0-0.1 [facility] Comment on above: Performed By: #### C BC #### [facility] [address] [address] [address] Jeri Connell Basophils/100 WBC (Bld) 0.3 % Normal 0.2-2.0 [facility] Comment on above: Performed By: #### C BC #### [facility] [address] [address] [address] Jeri Connell EO # 0.1 103/ul Normal 0.0-0.7 [facility] Comment on above: Performed By: #### C BC #### [facility] [address] [address] [address] Jeri Connell Eosinophils/100 WBC (Bld) 0.7 % Critically low 0.9-7.0 [facility] Comment on above: Performed By: #### C BC #### [facility] [address] [place] [address] Dr. Jeri Connell Erythrocyte distribution width (RBC) [Ratio] 13.7 % Normal 11.0-15.0 [facility] Comment on above: Performed By: #### C BC #### [facility] [address] [place] [address] Dr. Jeri Connell Hematocrit (Bld) [Volume fraction] 31.1 % Critically low 36.0-48.0 [facility] Comment on above: Performed By: #### C BC #### [facility] [address] [address] [address] Jeri Connell Hemoglobin (Bld) [Mass/Vol] 10.6 g/dL Critically low 12.0-16.0 [facility] Comment on above: Performed By: #### C BC #### [facility] [address] [address] [address] Jeri Connell IG # 0.11 10e3/ul Critically high 0.00-0.03 [facility] Comment on above: Performed By: #### C BC #### [facility] [address] [place] [address] Dr. Jeri Connell IG % 1.1 % Critically high 0.0-0.5 [facility] Comment on above: Performed By: #### C BC #### [facility] [address] [place] [address] Dr. Jeri Connell LYMPH # 1.5 103/ul Normal 1.2-3.8 [facility] Comment on above: Performed By: #### C BC #### [facility] [address] [place] [address] Dr. Jeri Connell Lymphocytes/100 WBC (Bld) 14.7 % Critically low 20.5-60.0 [facility] Comment on above: Performed By: #### C BC #### [facility] [address] [place] [address] Dr. Jeri Connell MANUAL DIFF REQ NO Normal [facility] Comment on above: Performed By: #### C BC #### [facility] [address] [place] [address] Dr. Jeri Connell MCH (RBC) [Entitic mass] 31.7 pg Normal 26.7-34.0 [facility] Comment on above: Performed By: #### C BC #### [facility] [address] [place] [address] Dr. Jeri Connell MCHC (RBC) [Mass/Vol] 34.1 g/dL Normal 29.9-35.2 [facility] Comment on above: Performed By: #### C BC #### [facility] [address] [place] [address] Dr. Jeri Connell MCV (RBC) [Entitic vol] 93.1 fL Normal 81.0-99.0 [facility] Comment on above: Performed By: #### C BC #### [facility] [address] [place] [address] Dr. Jeri Connell MONO # 0.8 103/ul Normal 0.3-0.8 [facility] Comment on above: Performed By: #### C BC #### [facility] [address] [address] [address] Jeri Connell Monocytes/100 WBC (Bld) 8.2 % Normal 1.7-12.0 [facility] Comment on above: Performed By: #### C BC #### [facility] [address] [address] [address] Jeri Connell NEUT # 7.5 103/ul Critically high 1.4-6.5 [facility] Comment on above: Performed By: #### C BC #### [facility] [address] [place] [address] Dr. Jeri Connell Neutrophils/100 WBC (Bld) 75.0 % Normal 43.0-75.0 [facility] Comment on above: Performed By: #### C BC #### [facility] [address] [place] [address] Dr. Jeri Connell Platelet mean volume (Bld) [Entitic vol] 10.2 fL Normal 9.5-13.5 [facility] Comment on above: Performed By: #### C BC #### [facility] [address] [place] [address] Dr. Jeri Connell PLT 228 103/ul Normal 150-450 [facility] Comment on above: Performed By: #### C BC #### [facility] [address] [place] [address] Dr. Jeri Connell RBC 3.34 106/ul Critically low 4.20-5.40 [facility] Comment on above: Performed By: #### C BC #### [facility] [address] [place] [address] Dr. Jeri Connell WBC 10.0 103/ul Normal 4.0-11.0 [facility] Comment on above: Performed By: #### C BC #### [facility] [address] [place] [address] Dr. Jeri Connell US PREG BIOPHY W NON STRESSo n 08-28-2022 US PREG BIOPHY W NON STRESS EXAMINATION: US PREG BIOPHY W NON STRESS HISTORY: History of complication of , childbirth and/or puerperium COMPARISON: No relevant comparison available. TECHNIQUE: Ultrasound biophysical profile was performed in the radiology department. FINDINGS: BREATHING MOVEMENTS: 2.0 GROSS BODY MOVEMENTS: 2.0 TONE: 2.0 QUALITATIVE AMNIOTIC FLUID VOLUME: 2.0 PRESENTATION: Cephalic HEART RATE: 145.9 bpm H.B./min AMNIOTIC FLUID VOLUME: 16.5 cm cm GESTATIONAL AGE: 32 weeks 1 days CONCLUSION: Total biophysical profile score: 8.0 Electronically authenticated by: SENIA RODRIGUEZ Date: 2022-08-28 18:24 Normal [facility] ECHOCARDIO M/2D COMPLETEon 0 08-23-2022 ECHOCARDIO M/2D COMPLETE Patient Name Site Name CORBIN UMANA [facility] Account No Medical Record Number Age Sex Date Time [id number] [facility]:[id number] F 08/23/2022 13:10 At the Request Of MANJINDER ESTRADA ECHOCARDIOGRAM REPORT PROCEDURE: CARDIO PULMONARY ECHOCARDIO M/2D COMP INDICATIONS: Abnormal EKG, 31 weeks COMPARISON: None. DESCRIPTION: COMPLETE ECHOCARDIOGRAM Real-time transthoracic echocardiography with 2D, M-mode, spectral and color flow Doppler performed. QUALITY: Technical quality was good. LEFT VENTRICLE: Normal chamber size. Normal left ventricular wall thickness. Normal systolic function. LV EF: Normal left ventricular ejection fraction, (>55%). DIASTOLIC: Normal diastolic function. ATRIAL SEPTUM: Visually appears intact. LEFT ATRIUM: Normal chamber size. RIGHT ATRIUM: Normal chamber size. RIGHT VENTRICLE: Normal chamber size. Normal right ventricular systolic function. TRICUSPID VALVE: Normal mobility and thickness. No stenosis with no regurgitation. MITRAL VALVE: Mildly thickened with normal mobility. No evidence of mitral valve stenosis. Trivial mitral regurgitation. AORTIC VALVE: Normal trileaflet appearance. No visible sclerosis. Normal leaflet mobility. No evidence of aortic valve stenosis. AORTIC ROOT: Normal diameter and appearance. PULMONIC VALVE: Normal thickness and mobility. No stenosis. Trivial regurgitation. PERICARDIUM: No evidence of pericardial effusion. IVC: Collapses with inspirations. PLEURA: CONCLUSION: 1. Normal ventricular function. LVEF is 55 to 60%. 2. No significant valvular dysfunction. 3. No pericardial effusion. Adult Echocardiography Procedure Report Left Ventricle LVEDD (3.7 - 5.6 cm): 4.95 cm LVESD (2.2 - 4.0 cm): 3.32 cm LVIVS thickness (0.6 - 1.2 cm): 0.73 cm LVPW thickness (0.5 - 1.0 cm): 0.79 cm e': 0.12 m/s E - e': 4.71 LVOT Max Gradient: 2.42 mm[Hg] Peak Velocity (LVOT): 0.78 m/s LVOT Diameter 2.16 cm Left Ventricular Ejection Fraction: 55-60% Left Atrium LA Volume Index (2D A2C): 51.70 ml, 51.70 ml Left Atrium Systolic Dimension: 3.43 cm Mitral Valve MV E to A Ratio: 0.98 Mitral Valve A-Wave Peak Velocity: 0.55 m/s Mitral Valve E-Wave Peak Velocity: 0.54 m/s Right Ventricle Aorta AO Root Diam: 3.05 cm Aortic Valve AoV Area (Peak Luisito): 2.36 cm2, 2.36 cm2 Peak Velocity(Antegrade Flow): 1.21 m/s Peak Gradient(Antegrade Flow): 5.85 mm[Hg] Tricuspid Valve Peak Velocity: 0.65 m/s Pulmonic Valve Peak Velocity: 1.09 m/s, 0.96 m/s Peak Gradient: 4.79 mm[Hg], 3.68 mm[Hg] Right Atrium Right Atrium Systolic Pressure: 24.56 ml, 24.56 ml Dictated by: Kenneth Moore M.D. on 08/24/2022 at 18:56 Approved by: Kenneth Moore M.D. on 08/24/2022 at 18:58 Normal [facility] Office Visiton 08-11-2022 Follow-up visit [id number] Corbin Umana 1990 F Date Provider Department Center 08/11/2022 1596-MANJINDER ESTRADA [facility] Family History Problem Relation Age of Onset Coronary artery disease Maternal Grandmother Other Maternal Grandmother Hypertension Maternal Grandmother Atrial fibrillation Maternal Grandfather Other Maternal Grandfather Family Status - Relation Status Age at Maternal Grandmother Maternal Grandfather Level of Service:82994 [place] OFFICE/OUTPATIENT NEW LOW MDM 30-44 MINUTES Normal [facility] TYPE AND SCREENon 08-11-2022 TYPE AND SCREEN Antibody Screen NEGATIVE ABO Rh Typing A Rh Negative Blood Bank Notes 1 unit called to pharmacy @9987 Normal [facility] Comment on above: Performed By: #### D RUGRPD #### [facility] [address] [place] [address] Dr. Jeri Connell CBC AUTO DIFFon 07-30-2022 BASO # 0.0 103/ul Normal 0.0-0.1 [facility] Comment on above: Performed By: #### G LU1HR #### [facility] [address] [place] [address] Dr. Jeri Connell Basophils/100 WBC (Bld) 0.2 % Normal 0.2-2.0 [facility] Comment on above: Performed By: #### G LU1HR #### [facility] [address] [place] [address] Dr. Jeri Connell EO # 0.1 103/ul Normal 0.0-0.7 [facility] Comment on above: Performed By: #### G LU1HR #### [facility] [address] [place] [address] Dr. Jeri Connell Eosinophils/100 WBC (Bld) 0.8 % Critically low 0.9-7.0 [facility] Comment on above: Performed By: #### G LU1HR #### [facility] [address] [place] [address] Dr. Jeri Connell Erythrocyte distribution width (RBC) [Ratio] 13.3 % Normal 11.0-15.0 [facility] Comment on above: Performed By: #### G LU1HR #### [facility] [address] [place] [address] Dr. Jeri Connell Hematocrit (Bld) [Volume fraction] 27.9 % Critically low 36.0-48.0 [facility] Comment on above: Performed By: #### G LU1HR #### [facility] [address] [place] [address] Dr. Jeri Connell Hemoglobin (Bld) [Mass/Vol] 10.2 g/dL Critically low 12.0-16.0 [facility] Comment on above: Performed By: #### G LU1HR #### [facility] [address] [address] [address] Jeri Connell IG # 0.05 10e3/ul Critically high 0.00-0.03 [facility] Comment on above: Performed By: #### G LU1HR #### [facility] [address] [place] [address] Dr. Jeri Connell IG % 0.6 % Critically high 0.0-0.5 [facility] Comment on above: Performed By: #### G LU1HR #### [facility] [address] [place] [address] Dr. Jeri Connell LYMPH # 1.1 103/ul Critically low 1.2-3.8 [facility] Comment on above: Performed By: #### G LU1HR #### [facility] [address] [place] [address] Dr. Jeri Connell Lymphocytes/100 WBC (Bld) 13.3 % Critically low 20.5-60.0 [facility] Comment on above: Performed By: #### G LU1HR #### [facility] [address] [place] [address] Dr. Jeri Connell MANUAL DIFF REQ NO Normal [facility] Comment on above: Performed By: #### G LU1HR #### [facility] [address] [place] [address] Dr. Jeri Connell MCH (RBC) [Entitic mass] 31.3 pg Normal 26.7-34.0 [facility] Comment on above: Performed By: #### G LU1HR #### [facility] [address] [place] [address] Dr. Jeri Connell MCHC (RBC) [Mass/Vol] 36.6 g/dL Critically high 29.9-35.2 [facility] Comment on above: Performed By: #### G LU1HR #### [facility] [address] [place] [address] Dr. Jeri Connell MCV (RBC) [Entitic vol] 85.6 fL Normal 81.0-99.0 [facility] Comment on above: Performed By: #### G LU1HR #### [facility] [address] [address] [address] Jeri Connell MONO # 0.5 103/ul Normal 0.3-0.8 [facility] Comment on above: Performed By: #### G LU1HR #### [facility] [address] [address] [address] Jeri Connell Monocytes/100 WBC (Bld) 5.5 % Normal 1.7-12.0 [facility] Comment on above: Performed By: #### G LU1HR #### [facility] [address] [place] [address] Dr. Jeri Connell NEUT # 6.6 103/ul Critically high 1.4-6.5 [facility] Comment on above: Performed By: #### G LU1HR #### [facility] [address] [place] [address] Dr. Jeri Connell Neutrophils/100 WBC (Bld) 79.6 % Critically high 43.0-75.0 [facility] Comment on above: Performed By: #### G LU1HR #### [facility] [address] [place] [address] Dr. Jeri Connell Platelet mean volume (Bld) [Entitic vol] 9.8 fL Normal 9.5-13.5 [facility] Comment on above: Performed By: #### G LU1HR #### [facility] [address] [place] [address] Dr. Jeri Connell PLT 237 103/ul Normal 150-450 [facility] Comment on above: Performed By: #### G LU1HR #### [facility] [address] [place] [address] Dr. Jeri Connell RBC 3.26 106/ul Critically low 4.20-5.40 [facility] Comment on above: Performed By: #### G LU1HR #### [facility] [address] [place] [address] Dr. Jeri Connell WBC 8.3 103/ul Normal 4.0-11.0 [facility] Comment on above: Performed By: #### G LU1HR #### [facility] [address] [address] [address] Jeri Connell GLUCOSE - 1HRon 07-30-2022 Glucose [Mass/Vol] 114 mg/dL Critically high 74-106 [facility] Comment on above: Performed By: #### G LU1HR #### [facility] [address] [address] [address] Jeri Connell GLYCOHEMOGLOBIN A1Con 2022 ADA RECOMMENDATION SEE BELOW Normal [facility] Comment on above: Result Comment: ADA RECOMMENDED LIMIT 4.0 - 6.0 ADA THERAPEUTIC TARGET < 7.0 ACTION SUGGESTED > 7.0 Performed By: #### A 1C #### [facility] [address] [address] [address] Jeri Connell Glucose [Mass/Vol] 91 mg/dL Normal [facility] Comment on above: Performed By: #### A 1C #### [facility] [address] [place] [address] Dr. Jeri Connell HbA1c (Bld) [Mass fraction] 4.8 % Normal 4.5-6.2 [facility] Comment on above: Performed By: #### A 1C #### [facility] [address] [place] [address] Dr. Jeri Connell US PREG PLACENTAon 3 US PREG PLACENTA EXAMINATION: US PREG PLACENTA HISTORY: Pelvic and perineal pain ; vaginal bleeding COMPARISON: No relevant comparison available. FINDINGS: PLACENTA: Posterior with lower margin 3.4 cm from os. No evidence of abruption or subchorionic hematoma. CERVIX LENGTH: Closed, 4.0 cm in length. HEART RATE: 148 bpm OTHER: Small amount of fluid within cervical canal, 1.4 x 0.7 x 0.6 cm. IMPRESSION: 1. Small amount of fluid within cervical canal, likely blood products. 2. No subchorionic hematoma or evidence of abruption. 3. Posterior placenta which is no longer low-lying. 4. Single live intrauterine . Electronically authenticated by: GOLD JEFF Date: 2022-07-08 17:33 Normal [facility] PAP ACOG PANEL 2: 30 to 65on 07-04-2022 . . Normal [facility] Comment on above: Result Comment: Perf ormed at: [facility] Performed By: #### G LU1HR #### [facility] [address] [address] [address] Jeri Connell Age Gdln ACOG Testing 30-65 Normal [facility] Comment on above: Performed By: #### G LU1HR #### [facility] [address] [id number] Dr. Jeri Connell DIAGNOSIS: Comment Normal [facility] Comment on above: Result Comment: NEGA TIVE FOR INTRAEPITHELIAL LESION OR MALIGNANCY. Performed at: [facility] Performed By: #### G LU1HR #### [facility] [address] [address] [address] Jeri Connell HPV Aptima Negative Normal Negative [facility] Comment on above: Result Comment: This nucleic acid amplification test detects fourteen high-risk HPV types (16,18,31,33,35,39,45,51,52,56,58,59,66,68) without differentiation. Performed at: =G Performed By: #### G LU1HR #### [facility] [address] [address] [address] Jeri Connell HPV Genotype Reflex Comment Normal [facility] Comment on above: Result Comment: Crit eria not met, HPV Genotype not performed. Performed at: [facility] Performed By: #### G LU1HR #### [facility] [address] [place] [address] Dr. Jeri Connell Methodology: Comment Normal [facility] Comment on above: Result Comment: This liquid based ThinPrep(R) pap test was screened with the use of an image guided system. Performed at: [facility] Performed By: #### G LU1HR #### [facility] [address] [address] [address] Jeri Connell Note: Comment Normal [facility] Comment on above: Result Comment: The Pap smear is a screening test designed to aid in the detection of premalignant and malignant conditions of the uterine cervix. It is not a diagnostic procedure and should not be used as the sole means of detecting cervical cancer. Both false-positive and false-negative reports do occur. . Performed at: [facility] Performed By: #### G LU1HR #### [facility] [address] [address] [address] Jeri Connell Performed by: Comment Normal [facility] Comment on above: Result Comment: Zoey Acevedo, Fiberglass Technician (ASCP) Performed at: [facility] Performed By: #### G LU1HR #### [facility] [address] [address] [address] Jeri Connell Specimen adequacy: Comment Normal [facility] Comment on above: Result Comment: Sati sfactory for evaluation. No endocervical component is identified. Performed at: [facility] Performed By: #### G LU1HR #### [facility] [address] [place] [address] Dr. Jeri Connell CHLAMYDIA/GONOCOCCUS MARIANO (SW AB/URINE/PAPon 07-02-2022 Chlamydia trachomatis, MARIANO Negative Normal Negative [facility] Comment on above: Performed By: #### G LU1HR #### [facility] [address] [place] [address] Dr. Jeri Connell Neisseria gonorrhoeae, MARIANO Negative Normal Negative [facility] Comment on above: Performed By: #### G LU1HR #### [facility] [address] [place] [address] Dr. Jeri Connell US PREG INCOMPLETE ANATOMYon 07-01-2022 US PREG INCOMPLETE ANATOMY EXAMINATION: US PREG INCOMPLETE ANATOMY HISTORY: screening incomplete COMPARISON: Ultrasound anatomy 06/01/2022 FINDINGS: Presentation: Breech Placenta: Posterior with lower margin 2.5 cm from os. Heart rate: 155 bpm Anatomy: Adequate visualization of spine, cardiac outflow tracts, stomach, three-vessel cord GA: 24 weeks 0 days BRAULIO: 10/21/2022 IMPRESSION: 1. Single live intrauterine . 2. Adequate visualization with no appreciable abnormality of the spine, cardiac outflow tracts, stomach, three-vessel cord on today's study. 3. Placenta is posterior and still low-lying. Electronically authenticated by: GOLD JEFF Date: 2022-07-01 17:24 Normal [facility] VAGINITIS/VAGINOSIS DNA PROB Paul 07-01-2022 Maddy species Negative Normal Negative [facility] Comment on above: Performed By: #### G LU1HR #### [facility] [address] [address] [address] Jeri Connell Gardnerella vaginalis Negative Normal Negative [facility] Comment on above: Performed By: #### G LU1HR #### [facility] [address] [address] [address] Jeri Connell Trichomonas vaginalis Negative Normal Negative [facility] Comment on above: Performed By: #### G LU1HR #### [facility] [address] [address] [address] Jeri Connell US PREG ANATOMY SINGLEon US PREG ANATOMY SINGLE EXAMINATION: US PREG ANATOMY SINGLE HISTORY: Patient currently COMPARISON: No relevant comparison available. TECHNIQUE: Transabdominal sonographic examination was performed for obstetrical and evaluation. FINDINGS: Number: 1 Heart Rate: 150.0 bpm H.B. /min Amniotic Fluid Volume: Subjectively normal Placental Location: POSTERIOR with lower margin 2.0 cm from os. Cervix Length: 4.6 cm, closed. ANATOMY: Normal Structures -cerebellum, choroid plexus, cisterna magna, lateral cerebral ventricles, orbits, midline falx, hard palate, four-chamber heart, LVOT, kidneys, bladder, umbilical cord insertion into abdomen, right upper extremity, left upper extremity, right lower extremity, left lower extremity. SUBOPTIMALLY SEEN: Right ventricle outflow tract, stomach, three-vessel cord, spine ABNORMALITIES: None BIOMETRY: BPD: 4.5 cm 19 weeks 4 days HC: 17.3 cm 19 weeks 6 days AC: 15.4 cm 20 weeks 4 days FL: 3.2 cm 20 weeks 1 days EFW:344.1 grams; 78% FL/AC: 21.0 FL/BPD: 72.3 HC/AC: 1.1 GESTATIONAL AGE: Age by EDC: 19 weeks 5 days BRAULIO by EDC: 10/21/2022 Age by current US: 20 weeks 0 days BRAULIO by current US: 10/19/2022 IMPRESSION: 1. Single live intrauterine with growth detailed above. 2. Suboptimal visualization of the right cardiac ventricle outflow tract, stomach, three-vessel cord, and spine due to position. Follow-up recommended. Electronically authenticated by: GOLD JEFF Date: 2022-06-02 06:18 Normal [facility] AFP MATERNAL FOR SPINA BIFID Aon 05-25-2022 AFP MoM 1.38 Normal [facility] Comment on above: Performed By: #### A 1C #### [facility] [address] [address] [address] Jeri Connell AFP Value 48.9 ng/mL Normal [facility] Comment on above: Performed By: #### A 1C #### [facility] [address] [address] [address] Jeri Connell AFP, Serum for Spina Bifida Report Normal [facility] Comment on above: Performed By: #### A 1C #### [facility] [address] [address] [address] Jeri Connell Comment Comment Normal [facility] Comment on above: Result Comment: Rosy Contreras, Ph.D., [facility] Director . References: Available Upon Request. . Multiples Of Median Cutoffs For AFP Elevations Hobson 2.5 Black 2.8 IDD 2.0 Twins 4.5 Abbreviation Definitions IDD - Insulin Dep Diabetes OSBR - Open Spina Bifida Risk . For further inquiries contact [facility] at [phone]. . This test was developed and its performance characteristics determined by [employer]. It has not been cleared or approved by the Food and Drug Administration. Performed By: #### A 1C #### [facility] [address] [address] [address] Jeri Mckeon Age Collection Date 18.1 weeks Normal [facility] Comment on above: Performed By: #### A 1C #### [facility] [id number] Jeri Mckeonat, Age Based on BRAULIO [facility] Comment on above: Result Comment: 09/26 Recalculations are not recommended when gestational dating by LMP and ultrasound are within 10 days. Performed By: #### A 1C #### [facility] [address] [address] [address] Jeri Connell Insulin Dep Diabetes No Normal [facility] Comment on above: Performed By: #### A 1C #### [facility] [address] [address] [address] Jeri Connell Interpretation Comment Normal [facility] Comment on above: Result Comment: Inte rpretation: Screen Negative . This result is screen negative for OSB. The AFP MoM calculated is based on the gestational age provided. MS-AFP can identify up to 80% of open neural tube defects. Closed neural tube defects and some open defects may not be detected by this test. This test does not screen for Down Syndrome or Trisomy 18. If screening for Down Syndrome or Trisomy 18 is desired, contact [facility] [employer] [facility] to discuss available options. The [place] [employer] recommends amniocentesis be offered to women age 35 and older. Performed By: #### A 1C #### [facility] [address] [place] [address] Dr. Jeri Connell [age] Normal [facility] Comment on above: Performed By: #### A 1C #### [facility] [address] [place] [address] Dr. Jeri Connell Multiple Gestation No Normal [facility] Comment on above: Performed By: #### A 1C #### [facility] [address] [place] [address] Dr. Jeri Connell OSBR Risk 1 [place] [address] [facility] Comment on above: Performed By: #### A 1C #### [facility] [address] [place] [address] Dr. Jeri Connell PDF . Normal [facility] Comment on above: Performed By: #### A 1C #### [facility] [address] [place] [address] Dr. Jeri Connell Race [facility] Comment on above: Performed By: #### A 1C #### [facility] [address] [place] [address] Dr. Jeri Connell Test Results: Negative Normal [facility] Comment on above: Performed By: #### A 1C #### [facility] [address] [place] [address] Dr. Jeri Connell AMYLASEon 05-08-2022 Amylase [Catalytic activity/Vol] 40 U/L Normal 25-115 [facility] Comment on above: Performed By: #### C BC #### [facility] [address] [place] [address] Dr. Jeri Connell CBC AUTO DIFFon 05-08-2022 BASO # 0.0 103/ul Normal 0.0-0.1 [facility] Comment on above: Performed By: #### G LU1HR #### [facility] [address] [place] [address] Dr. Jeri Connell Basophils/100 WBC (Bld) 0.2 % Normal 0.2-2.0 [facility] Comment on above: Performed By: #### G LU1HR #### [facility] [address] [place] [address] Dr. Jeri Connell EO # 0.1 103/ul Normal 0.0-0.7 [facility] Comment on above: Performed By: #### G LU1HR #### [facility] [address] [place] [address] Dr. Jeri Connell Eosinophils/100 WBC (Bld) 0.6 % Critically low 0.9-7.0 [facility] Comment on above: Performed By: #### G LU1HR #### [facility] [address] [place] [address] Dr. Jeri Connell Erythrocyte distribution width (RBC) [Ratio] 13.1 % Normal 11.0-15.0 [facility] Comment on above: Performed By: #### G LU1HR #### [facility] [address] [place] [address] Dr. Jeri Connell Hematocrit (Bld) [Volume fraction] 33.2 % Critically low 36.0-48.0 [facility] Comment on above: Performed By: #### G LU1HR #### [facility] [address] [place] [address] Dr. Jeri Connell Hemoglobin (Bld) [Mass/Vol] 11.4 g/dL Critically low 12.0-16.0 [facility] Comment on above: Performed By: #### G LU1HR #### [facility] [address] [address] [address] Jeri Connell IG # 0.04 10e3/ul Critically high 0.00-0.03 [facility] Comment on above: Performed By: #### G LU1HR #### [facility] [address] [address] [address] Jeri Connell IG % 0.5 % Normal 0.0-0.5 [facility] Comment on above: Performed By: #### G LU1HR #### [facility] [address] [address] [address] Jeri Connell LYMPH # 0.9 103/ul Critically low 1.2-3.8 [facility] Comment on above: Performed By: #### G LU1HR #### [facility] [address] [address] [address] Jeri Connell Lymphocytes/100 WBC (Bld) 10.5 % Critically low 20.5-60.0 [facility] Comment on above: Performed By: #### G LU1HR #### [facility] [address] [address] [address] Jeri Connell MANUAL DIFF REQ NO Normal [facility] Comment on above: Performed By: #### G LU1HR #### [facility] [address] [address] [address] Jeri Connell MCH (RBC) [Entitic mass] 31.5 pg Normal 26.7-34.0 [facility] Comment on above: Performed By: #### G LU1HR #### [facility] [address] [address] [address] Jeri Connell MCHC (RBC) [Mass/Vol] 34.3 g/dL Normal 29.9-35.2 [facility] Comment on above: Performed By: #### G LU1HR #### [facility] [address] [address] [address] Jeri Connell MCV (RBC) [Entitic vol] 91.7 fL Normal 81.0-99.0 [facility] Comment on above: Performed By: #### G LU1HR #### [facility] [address] [address] [address] Jeri Connell MONO # 0.4 103/ul Normal 0.3-0.8 [facility] Comment on above: Performed By: #### G LU1HR #### [facility] [address] [place] [address] Dr. Jeri Connell Monocytes/100 WBC (Bld) 4.8 % Normal 1.7-12.0 [facility] Comment on above: Performed By: #### G LU1HR #### [facility] [address] [place] [address] Dr. Jeri Connell NEUT # 7.2 103/ul Critically high 1.4-6.5 [facility] Comment on above: Performed By: #### G LU1HR #### [facility] [address] [place] [address] Dr. Jeri Connell Neutrophils/100 WBC (Bld) 83.4 % Critically high 43.0-75.0 [facility] Comment on above: Performed By: #### G LU1HR #### [facility] [address] [place] [address] Dr. Jeri Connell Platelet mean volume (Bld) [Entitic vol] 10.3 fL Normal 9.5-13.5 [facility] Comment on above: Performed By: #### G LU1HR #### [facility] [address] [place] [address] Dr. Jeri Connell PLT 241 103/ul Normal 150-450 [facility] Comment on above: Performed By: #### G LU1HR #### [facility] [address] [place] [address] Dr. Jeri Connell RBC 3.62 106/ul Critically low 4.20-5.40 [facility] Comment on above: Performed By: #### G LU1HR #### [facility] [address] [place] [address] Dr. Jeri Connell WBC 8.6 103/ul Normal 4.0-11.0 [facility] Comment on above: Performed By: #### G LU1HR #### [facility] [address] [address] [address] Jeri BARLOW URINE PROFILEon 2 Bilirubin Ql (U) Negative Normal NEGATIVE [facility] Comment on above: Performed By: #### A 1C #### [facility] [address] [place] [address] Dr. Jeri Connell Clarity (U) CLEAR Normal CLEAR [facility] Comment on above: Performed By: #### A 1C #### [facility] [address] [address] [address] Jeri Connell Color (U) LT. YELLOW Normal YELLOW [facility] Comment on above: Performed By: #### A 1C #### [facility] [address] [place] [address] Dr. Jeri Bermudez micrscopic examination will be performed if indicated. Normal [facility] Comment on above: Performed By: #### A 1C #### [facility] [address] [place] [address] Dr. Jeri Connell Glucose Ql (U) Negative Normal NEGATIVE [facility] Comment on above: Performed By: #### A 1C #### [facility] [address] [place] [address] Dr. Jeri Connell Hemoglobin Ql (U) Negative Normal NEGATIVE [facility] Comment on above: Performed By: #### A 1C #### [facility] [address] [place] [address] Dr. Jeri Connell Ketones Ql (U) Negative Normal NEGATIVE [facility] Comment on above: Performed By: #### A 1C #### [facility] [address] [address] [address] Jeri Connell LEUKOCYTES Negative Normal NEGATIVE [facility] Comment on above: Performed By: #### A 1C #### [facility] [address] [place] [address] Dr. Jeri Connell Nitrite Ql (U) Negative Normal NEGATIVE [facility] Comment on above: Performed By: #### A 1C #### [facility] [address] [place] [address] Dr. Jeri Connell pH (U) 6.0 [pH] Normal 5-9 [facility] Comment on above: Performed By: #### A 1C #### [facility] [address] [place] [address] Dr. Jeri Connell SPEC GRAVITY <=1.005 Abnormal 1.005-<=1.025 [facility] Comment on above: Performed By: #### A 1C #### [facility] [address] [place] [address] Dr. Jeri Connell UA PROTEIN Negative Normal NEGATIVE/ TRACE [facility] Comment on above: Performed By: #### A 1C #### [facility] [address] [place] [address] Dr. Jeri Connell UR MICRO IND NOT INDICATED Normal [facility] Comment on above: Performed By: #### A 1C #### [facility] [address] [place] [address] Dr. Jeri Connell Urobilinogen Qn (U) 0.2 {Joshua'U}/dL Normal 0.2 - 1. 0 [facility] Comment on above: Performed By: #### A 1C #### [facility] [address] [place] [address] Dr. Jeri Connell LIPASEon 05-08-2022 Lipase [Catalytic activity/Vol] 110.0 U/L Normal 73.0-393.0 [facility] Comment on above: Performed By: #### C BC #### [facility] [address] [place] [address] Dr. Jeri Connell PROF 14(COMP METB)on 022 Albumin [Mass/Vol] 3.1 g/dL Critically low 3.4-5.0 [facility] Comment on above: Performed By: #### C BC #### [facility] [address] [place] [address] Dr. Jeri Connell Albumin/Globulin [Mass ratio] 0.8 {ratio} Normal [facility] Comment on above: Performed By: #### C BC #### [facility] [address] [address] [address] Jeri Connell ALP [Catalytic activity/Vol] 61 U/L Normal 46-116 [facility] Comment on above: Performed By: #### C BC #### [facility] [address] [place] [address] Dr. Jeri Connell ALT [Catalytic activity/Vol] 16 U/L Normal 14-59 [facility] Comment on above: Performed By: #### C BC #### [facility] [address] [place] [address] Dr. Jeri Connell Anion gap [Moles/Vol] 13.3 mmol/L Normal [facility] Comment on above: Performed By: #### C BC #### [facility] [address] [place] [address] Dr. Jeri Connell AST [Catalytic activity/Vol] 8 U/L Critically low 15-37 [facility] Comment on above: Performed By: #### C BC #### [facility] [address] [place] [address] Dr. Jeri Connell Bilirubin [Mass/Vol] 0.3 mg/dL Normal 0.2-1.0 [facility] Comment on above: Performed By: #### C BC #### [facility] [address] [place] [address] Dr. Jeri Connell Calcium [Mass/Vol] 8.5 mg/dL Normal 8.5-10.1 [facility] Comment on above: Performed By: #### C BC #### [facility] [address] [place] [address] Dr. Jeri Connell Chloride [Moles/Vol] 102 mmol/L Normal 98-107 [facility] Comment on above: Performed By: #### C BC #### [facility] [address] [place] [address] Dr. Jeri Connell CO2 [Moles/Vol] 25.4 mmol/L Normal 21.0-32.0 [facility] Comment on above: Performed By: #### C BC #### [facility] [address] [place] [address] Dr. Jeri Connell Creatinine [Mass/Vol] 0.60 mg/dL Normal 0.55-1.02 [facility] Comment on above: Performed By: #### C BC #### [facility] [address] [address] [address] Jeri Connell EGFR-AF [place]ER >60 Normal >=60 [facility] Comment on above: Performed By: #### C BC #### [facility] [address] [address] [address] Jeri Connell EGFR-NON AF [place] >60 Normal >=60 [facility] Comment on above: Performed By: #### C BC #### [facility] [address] [address] [address] Jeri Connell Globulin (S) [Mass/Vol] 3.7 g/dL Normal [facility] Comment on above: Performed By: #### C BC #### [facility] [address] [address] [address] Jeri Connell Glucose [Mass/Vol] 84 mg/dL Normal 74-106 [facility] Comment on above: Performed By: #### C BC #### [facility] [address] [address] [address] Jeri Connell Potassium [Moles/Vol] 3.7 mmol/L Normal 3.5-5.1 [facility] Comment on above: Performed By: #### C BC #### [facility] [address] [address] [address] Jeri Connell Protein [Mass/Vol] 6.8 g/dL Normal 6.4-8.2 [facility] Comment on above: Performed By: #### C BC #### [facility] [address] [address] [address] Jeri Connell Sodium [Moles/Vol] 137 mmol/L Normal 136-145 [facility] Comment on above: Performed By: #### C BC #### [facility] [address] [address] [address] Jeri Connell Urea nitrogen [Mass/Vol] 5.0 mg/dL Critically low 7.0-18.0 [facility] Comment on above: Performed By: #### C BC #### [facility] [address] [address] [address] Jeri Connell Urea nitrogen/Creatinine [Mass ratio] 8.3 mg/mg Normal [facility] Comment on above: Performed By: #### C BC #### [facility] [id number] Jeri Connell US PREG PLACENTAon US PREG PLACENTA EXAMINATION: US PREG PLACENTA HISTORY: Pain , cramping COMPARISON: No relevant comparison available. FINDINGS: PLACENTA: Posterior-fundal, grade 0 with lower margin 4.3 cm from os. No subchorionic hematoma or abruption. CERVIX LENGTH: 4.3 cm, closed. HEART RATE: 146 bpm OTHER: Amniotic fluid volume is subjectively normal. IMPRESSION: 1. Normal appearance of placenta. 2. Single live intrauterine . No appreciable acute findings. Electronically authenticated by: GOLD JEFF Date: 2022-05-08 08:45 Normal [facility] HEP B SURFACE ANTIGEN SCREEN on 04-06-2022 HBsAg Screen Negative Normal Negative [facility] Comment on above: Performed By: #### C BC #### [facility] [address] [address] [address] Jeri Connell HEPATITIS C VIRUS AB W/ REFL EX QUANTon 04-06-2022 HCV AB <0.1 Normal 0.0-0.9 [facility] Comment on above: Performed By: #### A 1C #### [facility] [address] [address] [address] Jeri Connell Interpretation: Comment Normal [facility] Comment on above: Result Comment: Nega tive Not infected with HCV, unless recent infection is suspected or other evidence exists to indicate HCV infection. Performed By: #### A 1C #### [facility] [address] [place] [address] Dr. Jeri Connell HIV 1 AND 2 WITH REFLEXon HIV Screen 4th Generation wRfx Non-Reactive Normal Non Reactive [facility] Comment on above: Result Comment: HIV Negative HIV-1/HIV-2 antibodies and HIV-1 p24 antigen were NOT detected. There is no laboratory evidence of HIV infection. Performed By: #### G LU1HR #### [facility] [address] [place] [address] Dr. Jeri Connell RPR QUANTon 04-06-2022 Rapid Plasma Reagin, Quant Non-Reactive Normal NonRea<1:1 [facility] Comment on above: Result Comment: Plea se Note: This test does not meet current guidelines for screening and diagnosis of syphilis. This test is intended for following treatment response in patients being treated for syphilis infection. To screen for syphilis infection, a reflex cascade that includes both RPR and a treponema-specific assay should be utilized, such as Treponema pallidum (Syphilis) Screening Preble (341472) or Rapid Plasma Reagin (RPR) Test With Reflex to Quantitative RPR and Confirmatory Treponema pallidum Antibodies (505993). Performed By: #### D RUGRPD #### [facility] [address] [place] [address] Dr. Jeri Connell RUBELLA AB IGGon 04-06-2022 Rubella Antibodies, IgG 4.61 index Normal Immune >0.99 [facility] Comment on above: Result Comment: Non- immune <0.90 Equivocal 0.90 - 0.99 Immune >0.99 Performed By: #### G LU1HR #### [facility] [address] [place] [address] Dr. Jeri Connell CBC AUTO DIFFon 04-05-2022 BASO # 0.0 103/ul Normal 0.0-0.1 [facility] Comment on above: Performed By: #### D RUGRPD #### [facility] [address] [place] [address] Dr. Jeri Connell Basophils/100 WBC (Bld) 0.4 % Normal 0.2-2.0 [facility] Comment on above: Performed By: #### D RUGRPD #### [facility] [address] [place] [address] Dr. Jeri Connell EO # 0.1 103/ul Normal 0.0-0.7 [facility] Comment on above: Performed By: #### D RUGRPD #### [facility] [address] [place] [address] Dr. Jeri Connell Eosinophils/100 WBC (Bld) 1.3 % Normal 0.9-7.0 [facility] Comment on above: Performed By: #### D RUGRPD #### [facility] [address] [place] [address] Dr. Jeri Connell Erythrocyte distribution width (RBC) [Ratio] 12.7 % Normal 11.0-15.0 [facility] Comment on above: Performed By: #### D RUGRPD #### [facility] [address] [place] [address] Dr. Jeri Connell Hematocrit (Bld) [Volume fraction] 35.1 % Critically low 36.0-48.0 [facility] Comment on above: Performed By: #### D RUGRPD #### [facility] [address] [place] [address] Dr. Jeri Connell Hemoglobin (Bld) [Mass/Vol] 12.0 g/dL Normal 12.0-16.0 [facility] Comment on above: Performed By: #### D RUGRPD #### [facility] [address] [place] [address] Dr. Jeri Connell IG # 0.02 10e3/ul Normal 0.00-0.03 [facility] Comment on above: Performed By: #### D RUGRPD #### [facility] [address] [place] [address] Dr. Jeri Connell IG % 0.2 % Normal 0.0-0.5 [facility] Comment on above: Performed By: #### D RUGRPD #### [facility] [address] [place] [address] Dr. Jeri Connell LYMPH # 1.3 103/ul Normal 1.2-3.8 [facility] Comment on above: Performed By: #### D RUGRPD #### [facility] [address] [place] [address] Dr. Jeri Connell Lymphocytes/100 WBC (Bld) 15.4 % Critically low 20.5-60.0 [facility] Comment on above: Performed By: #### D RUGRPD #### [facility] [address] [address] [address] Jeri Connell MANUAL DIFF REQ NO Normal [facility] Comment on above: Performed By: #### D RUGRPD #### [facility] [address] [place] [address] Dr. Jeri Connell MCH (RBC) [Entitic mass] 31.5 pg Normal 26.7-34.0 [facility] Comment on above: Performed By: #### D RUGRPD #### [facility] [address] [place] [address] Dr. Jeri Connell MCHC (RBC) [Mass/Vol] 34.2 g/dL Normal 29.9-35.2 [facility] Comment on above: Performed By: #### D RUGRPD #### [facility] [address] [place] [address] Dr. Jeri Connell MCV (RBC) [Entitic vol] 92.1 fL Normal 81.0-99.0 [facility] Comment on above: Performed By: #### D RUGRPD #### [facility] [address] [place] [address] Dr. Jeri Connell MONO # 0.5 103/ul Normal 0.3-0.8 [facility] Comment on above: Performed By: #### D RUGRPD #### [facility] [address] [place] [address] Dr. Jeri Connell Monocytes/100 WBC (Bld) 5.4 % Normal 1.7-12.0 [facility] Comment on above: Performed By: #### D RUGRPD #### [facility] [address] [place] [address] Dr. Jeri Connell NEUT # 6.6 103/ul Critically high 1.4-6.5 [facility] Comment on above: Performed By: #### D RUGRPD #### [facility] [address] [place] [address] Dr. Jeri Connell Neutrophils/100 WBC (Bld) 77.3 % Critically high 43.0-75.0 [facility] Comment on above: Performed By: #### D RUGRPD #### [facility] [address] [address] [address] Jeri Connell Platelet mean volume (Bld) [Entitic vol] 10.5 fL Normal 9.5-13.5 [facility] Comment on above: Performed By: #### D RUGRPD #### [facility] [address] [address] [address] Jeri Connell PLT 250 103/ul Normal 150-450 [facility] Comment on above: Performed By: #### D RUGRPD #### [facility] [address] [address] [address] Jeri Connell RBC 3.81 106/ul Critically low 4.20-5.40 [facility] Comment on above: Performed By: #### D RUGRPD #### [facility] [address] [place] [address] Dr. Jeri Connell WBC 8.6 103/ul Normal 4.0-11.0 [facility] Comment on above: Performed By: #### D RUGRPD #### [facility] [address] [place] [address] Dr. Jeri Connell CULTURE URINEon 04-05-2022 CULTURE URINE Culture Observations : LIGHT GROWTH OF MIXED GENITAL BARRETT. NO POTENTIAL PATHOGENS SEEN. Normal [facility] Comment on above: Performed By: #### U RCX #### [facility] [address] [place] [address] Dr. Jeri Connell GLYCOHEMOGLOBIN A1Con 2021 ADA RECOMMENDATION SEE BELOW Normal [facility] Comment on above: Result Comment: ADA RECOMMENDED LIMIT 4.0 - 6.0 ADA THERAPEUTIC TARGET < 7.0 ACTION SUGGESTED > 7.0 Performed By: #### A 1C #### [facility] [address] [place] [address] Dr. Jeri Connell Glucose [Mass/Vol] 85 mg/dL Normal [facility] Comment on above: Performed By: #### A 1C #### [facility] [address] [place] [address] Dr. Jeri Connell HbA1c (Bld) [Mass fraction] 4.6 % Normal 4.5-6.2 [facility] Comment on above: Performed By: #### A 1C #### [facility] [address] [address] [address] Jrei Connell RACHEL BOX TEST PT SEND OUTo n 04-05-2022 SENT TO REF LAB 04/05/2022 Normal [facility] Comment on above: Performed By: #### A 1C #### [facility] [address] [address] [address] Jeri Connell TYPE AND SCREENon 04-05-2022 TYPE AND SCREEN Negative Normal [facility] Comment on above: Performed By: #### T NS #### [facility] [address] [place] [address] Dr. Jeri Connell US PREG TVon 03-15-2022 US PREG TV EXAMINATION: US PREG TV HISTORY: Threatened COMPARISON: Ultrasound transvaginal 03/02/2022 FINDINGS: GESTATIONAL SAC: Present and normal appearing. POLE: Present and normal appearing. YOLK SAC: Present. CARDIAC: Present. UTERUS: Small 12 x 14 x 6 mm hypoechoic area within the posterior uterine wall, nonspecific but most likely a small leiomyoma. OVARIES: Right: Corpus lutein cyst. Left: Normal. CERVIX: 3.5 cm in length and closed. CUL-DE-SAC: Normal. OTHER: None. AGE BY LMP: 8 weeks 4 days BRAULIO BY LMP: 10/21/2022 AGE BY US CRL: 8 weeks 1 day BRAULIO BY US CRL: 10/24/2022 IMPRESSION: 1. Single live intrauterine . 2. Small hypoechoic area within posterior uterine wall, most likely a leiomyoma. Follow-up can be performed as clinically indicated. Electronically authenticated by: GOLD JEFF Date: 2022-03-15 17:45 Normal [facility] US PREG TVon 03-02-2022 US PREG TV EXAMINATION: US PREG TV HISTORY: Missed period COMPARISON: 09/27/2021 FINDINGS: Transvaginal images Hobson intrauterine gestation Gestational sac: 1.6 cm, 5 weeks 6 days CRL: 3.8 mm, 6 weeks 0 days Yolk sac: 2.9 mm Heart rate: 119 bpm Cervix: Closed, 4 cm The uterus is normal in appearance, anteverted, anteflexed The right ovary measures 2.8 x 1.7 x 2.3 cm, septated anechoic area measuring 1.3 cm possibly corpus luteal cyst Left ovary is normal in appearance measuring 2.3 x 1.4 x 1.9 cm Clinical age: 6 weeks 5 days Clinical BRAULIO: 10/21/2022 Ultrasound age: 6 weeks 0 days Ultrasound BRAULIO: 10/26/2022 IMPRESSION: Viable hobson intrauterine gestation measuring 6 weeks 0 days Electronically authenticated by: SENIA RODRIGUEZ Date: 2022-03-02 19:12 Normal [facility] HCG-BETA SUBUNIT QUANTon hCG,Beta Subunit,Qnt,Serum 3841 mIU/mL Normal [facility] Comment on above: Result Comment: Fema le (Non-) 0 - 5 (Postmenopausal) 0 - 8 . Female () Weeks of Gestation 3 6 - 71 4 10 - 750 5 217 - 7138 6 158 - 01558 7 3227 -472832 8 21190 -980093 9 32158 -820212 10 73480 -481809 12 26259 -645156 14 04178 - 80306 15 11852 - 47438 16 9040 - 41092 17 8175 - 33805 18 8099 - 39961 Carlos ECLIA methodology Performed By: #### D RUGRPD #### [facility] [address] [place] [address] Dr. Jeri Connell HCG-BETA SUBUNIT QUANTon hCG,Beta Subunit,Qnt,Serum 522 mIU/mL Normal [facility] Comment on above: Result Comment: Fema le (Non-) 0 - 5 (Postmenopausal) 0 - 8 . Female () Weeks of Gestation 3 6 - 71 4 10 - 750 5 217 - 7138 6 158 - 28376 7 3697 -119667 8 88591 -622137 9 53852 -121875 10 87808 -954442 12 69783 -174015 14 95976 - 06991 15 68282 - 82394 16 9040 - 03887 17 8175 - 26844 18 8099 - 31641 Carlos ECLIA methodology Performed By: #### A 1C #### [facility] [address] [address] [address] Jeri Connell HCG-BETA SUBUNIT QUANTon hCG,Beta Subunit,Qnt,Serum 58 mIU/mL Normal [facility] Comment on above: Result Comment: Fema le (Non-) 0 - 5 (Postmenopausal) 0 - 8 . Female () Weeks of Gestation 3 6 - 71 4 10 - 750 5 217 - 7138 6 158 - 71330 7 3697 -292343 8 57801 -247336 9 94253 -395774 10 70996 -298887 12 70146 -169587 14 79452 - 61706 15 56834 - 11882 16 9040 - 22664 17 8175 - 68889 18 8099 - 08896 Carlos ECLIA methodology Performed By: #### A 1C #### [facility] [address] [place] [address] Dr. Jeri Connell HCG-BETA SUBUNIT QUANTon hCG,Beta Subunit,Qnt,Serum 20 mIU/mL Normal [facility] Comment on above: Result Comment: Fema le (Non-) 0 - 5 (Postmenopausal) 0 - 8 . Female () Weeks of Gestation 3 6 - 71 4 10 - 750 5 217 - 7138 6 158 - 73235 7 3697 -100363 8 52879 -637940 9 22270 -213787 10 27071 -597532 12 87465 -008882 14 28726 - 82577 15 93802 - 87999 16 1160 - 14948 17 8175 - 56822 18 8099 - 96693 Carlos ECLIA methodology Performed By: #### C BC #### [facility] [address] [place] [address] Dr. Jeri Connell Vital Signs Date Time Vital Sign Value Performing Clinician Facility 04-15-2024 09:44-0400 Body mass index (BMI) [Ratio] 38.87 kg/m2 Yen Rocha [employer] Work Phone: [facility] 04-15-2024 09:44-0400 Body temperature 98.1 [degF] Yen Rocha [employer] Work Phone: [facility] 04-15-2024 09:44-0400 Body weight 104.33 kg Yen Rocha [employer] Work Phone: [facility] 04-15-2024 09:44-0400 Heart rate 90 /min Yen Rocha [employer] Work Phone: [facility] 04-15-2024 09:44-0400 SaO2% (BldA) [Mass fraction] 99 % Yen Rocha [employer] Work Phone: [facility] 12-11-2023 10:38-0400 Body height 165.1 cm DO Cale Kuns Work Phone: [facility] 12-11-2023 10:38-0400 Body temperature 98.7 [degF] DO Cale Kuns Work Phone: [facility] 12-11-2023 10:38-0400 Body weight 106.59 kg DO Cale Kuns Work Phone: [facility] 12-11-2023 10:38-0400 Diastolic blood pressure 82 mm[Hg] DO Cale Kuns Work Phone: [facility] 12-11-2023 10:38-0400 Heart rate 85 /min DO Cale Kuns Work Phone: [facility] 12-11-2023 10:38-0400 Respiratory rate 18 /min DO Cale Kuns Work Phone: [facility] 12-11-2023 10:38-0400 SaO2% (BldA) [Mass fraction] 99 % DO Cale Kuns Work Phone: [facility] 12-11-2023 10:38-0400 Systolic blood pressure 148 mm[Hg] DO Cale Kuns Work Phone: [facility] 05-25-2022 17:07-0500 Body weight 105.[address] ALICIA KOCH . [facility] Comment on above: Performed By: #### A1C #### [facility] [address] [place] [address] Dr. Jeri Connell Encounters Encounter Date Encounter Type Care Provider Facility Start: 04-15-2024 End: 04-15-2024 Office outpatient visit 25 minutes Yen Rocha [employer] Work Phone: [facility] Comment on above: Acute cough (Primary Dx); Acute non-recurrent maxillary sinusitis Start: 04-15-2024 End: 04-15-2024 ambulatory YEN ROCHA Not Available Start: 01-23-2024 End: 01-23-2024 ambulatory DO Cale Kuns Work Phone: [facility] Work Phone: Start: 01-23-2024 End: 01-23-2024 Patient encounter procedure DO Cale Kuns Work Phone: [facility] Work Phone: Start: 01-19-2024 End: 01-19-2024 ambulatory DO Cale Kuns Work Phone: [facility] Work Phone: Start: 01-19-2024 End: 01-19-2024 Patient encounter procedure DO Cale Kuns Work Phone: [facility] [address] Work Phone: Start: 12-14-2023 End: 12-14-2023 ambulatory DO Cale Kuns Work Phone: [facility] Work Phone: Start: 12-14-2023 End: 12-14-2023 Patient encounter procedure DO Cale Kuns Work Phone: [facility] Work Phone: Start: 12-11-2023 End: 12-11-2023 Emergency department patient visit DO Cale Kuns Work Phone: [facility] Work Phone: Start: 10-19-2023 End: 10-19-2023 ambulatory JODI SIMON Not Available Start: 08-22-2023 End: 08-22-2023 ambulatory ALICIA KOCH Not Available Start: 07-21-2023 End: 07-21-2023 ambulatory ALICIA KOCH Not Available Start: 06-10-2023 End: 06-10-2023 ambulatory CHINA PETER Not Available Start: 10-05-2022 End: 10-05-[address] ALICIA KOCH . Facility:[facility] Start: 09-30-2022 End: 10-02-2022 Evaluation and management of inpatient DR ALICIA KOCH . Facility:[facility] Start: 09-28-2022 End: 09-28-[address] ALICIA KOCH . Facility:[facility] Start: 09-24-2022 End: 09-24-[address] ALICIA KOCH . Facility:[facility] Start: 09-23-2022 End: 09-23-[address] ALICIA KOCH . Facility:[facility] Start: 09-21-2022 End: 09-21-[address] ALICIA KOCH . Facility:[facility] Start: 09-17-2022 End: 09-17-[address] NONE LISTED REQUEST Facility:[facility] Start: 09-15-2022 End: 09-15-2022 ambulatory [facility] Start: 09-14-2022 End: 09-14-[address] ALICIA KOCH . Facility:[facility] Start: 09-10-2022 End: 09-10-[address] ALICIA KOCH . Facility:[facility] Start: 09-07-2022 End: 09-07-[address] ALICIA KOCH . Facility:[facility] Start: 09-03-2022 End: 09-04-[address] NONE LISTED REQUEST Facility:[facility] Start: 08-31-2022 End: 09-01-[address] ALICIA KOCH . Facility:[facility] Start: 08-27-2022 End: 08-27-[address] NONE LISTED REQUEST Facility:[facility] Start: 08-23-2022 End: 08-24-2022 ambulatory MANJINDER ESTRADA Facility:[facility] Start: 08-19-2022 End: 08-20-[address] ALICIA KOCH . Facility: Start: 08-11-2022 End: 08-12-2022 ambulatory [facility] Start: 07-30-2022 End: 07-31-[address] ALICIA KOCH . Facility: Start: 07-08-2022 End: 07-09-[address] ALICIA KOCH . Facility:[facility] Start: 07-01-2022 End: 07-02-[address] ALICIA KOCH . Facility:[facility] Start: 06-29-2022 End: 06-29-[address] ALICIA KOCH . Facility:[facility] Start: 06-01-2022 End: 06-02-[address] ALICIA KOCH . Facility: Start: 05-21-2022 End: 05-22-[address] ALICIA KOCH . Facility: Start: 05-08-2022 End: 05-08-2022 ambulatory NONE LISTED REQUEST Facility: Start: 04-06-[address] ALICIA KOCH . Facili ty: Start: 04-05-2022 End: 04-06-[address] ALICIA KOCH . Facility: Start: 03-15-2022 End: 03-16-[address] ALICIA KOCH . Facility: Start: 03-02-2022 End: 03-03-[address] ALICIA KOCH . Facility: Start: 02-09-2022 End: 02-24-[address] ALICIA KOCH . Facility: Procedures Date Procedure Procedure Detail Performing Clinician Start: 01-19-2024 MRI of right knee DO Br ett Kayden Work Phone: Start: 12-11-2023 X-ray of right knee DO Cale Kayden Work Phone: Start: 11-15-2022 H/O: section S/P s ection Yen Rocha MATERIAL C[employer]TER Work Phone: Start: 09-30-2022 Extraction of Produc ts of Conception, Low Cervical, Open Approach DR ALICIA KOCH . Start: 06-29-2022 Microscopic observat ion [Identifier] in Cervix by Cyto stain Yen Rocha [employer]ERIAL C[employer]TER Work Phone: Plan of Treatment Date Care Activity Detail Author Start: 06-29-2027 Screening for malign ant neoplasm of cervix [facility] Start: 07-25-2024 End: 07-25-2024 Patient encounter procedure 07/25/2024 2:00 PM EST Office Visit [facility] [address] [place] [address] Alicia Koch DO [address] [place] [address] [facility] Start: 02-26-2024 Influenza vaccination Influenza Vacc ine (#1) [facility] MR Knee - right WO contrast [facility] Patient Education Knee Sprain ED [facility] Work Phone: Patient referral [facility] Work Phone: Immunizations Immunization Date Immunization Notes Care Provider Fa [facility] 08-06-2020 influenza virus vacc ine, unspecified formulation Yen Rocha [employer] C[employer]TER Work Phone: [facility] Payers Date Payer Category [facility] [id number] 1990 Unknown [id number] 2.16.840.1.680619.3.579.2. 593 1990 Unknown [id number] 08.12.840.1.766730.3.579.2. 593 1990 Unknown [id number] 2.16.840.1.301046.3.579.2. 593 1990 Unknown [id number] 2.16.840.1.854926.3.579.2. 593 1990 Unknown [id number] 2.16.840.1.710270.3.579.2. 593 1990 Unknown [id number] 2.16.840.1.770098.3.579.2. 593 1990 Unknown [id number] 2.16.840.1.282960.3.579.2. 593 1990 Unknown [id number] 2.16.840.1.794288.3.579.2. 593 1990 Unknown [id number] 2.16840.1.775612.3.579.2. 593 1990 Unknown [id number] 2.16.840.1.184473.3.579.2. 593 1990 Unknown [id number] 2.16.840.1.066434.3.579.2. 593 1990 Unknown [id number] 2.16.840.1.737489.3.579.2. 593 1990 Unknown [id number] 2.16.840.1.807540.3.579.2. 593 1990 Unknown [id number] 2.16.840.1.752061.3.579.2. 593 1990 Unknown [id number] 2.16.840.1.574116.3.579.2. 593 1990 Unknown [id number] 2.16.840.1.839164.3.579.2. 593 1990 Unknown [id number] 2.16.840.1.341817.3.579.2. 593 1990 Unknown [id number] 2.16.840.1.333815.3.579.2. 593 1990 Unknown [id number] 2.16.840.1.762272.3.579.2. 593 1990 Unknown [id number] 2.16.840.1.176948.3.579.2. 593 1990 Unknown [id number] 2.16.840.1.342701.3.579.2. 593 1990 Unknown [id number] 2.16.840.1.238462.3.579.2. 593 1990 Unknown [id number] 2.16.840.1.819795.3.579.2. 593 1990 Unknown [id number] 2.16.840.1.330129.3.579.2. 593 1990 Unknown [id number] 2.16.840.1.563327.3.579.2. 593 1990 Unknown [id number] 2.16.840.1.311343.3.579.2. 593 1990 Unknown [id number] 2.16.840.1.906933.3.579.2. 593 1990 Unknown [id number] 2.16.840.1.878567.3.579.2. 593 1990 Unknown [id number] 2.16.840.1.994190.3.579.2. 593 1990 Unknown [id number] 2.16.840.1.736211.3.579.2. 593 1990 Unknown [id number] 2.16.840.1.942596.3.579.2. 1259 1990 Unknown [id number] 2.16.840.1.039849.3.579.2. 1259 1990 Unknown [id number] 2.16.840.1.986845.3.579.2. 1259 1990 Unknown [id number] 2.16.840.1.460931.3.579.2. 1259 1990 Unknown [id number] 2.16.840.1.151917.3.579.2. 1259 1959 Self-pay 1959 Unknown [id number] 1959 Unknown [id number] Unknown [id number] 2.16.840.1.900659.3.579.2. 593 Unknown [facility] Employees [id number] Unknown [facility] [id number] Unknown [id number] 2.16.840.1.502871.3.579.2. 531 Social History Date Type Detail Facility Start: 11-08-2022 End: 12-11-2023 Tobacco smoking status NHIS Never smoked tobacco (finding) [facility] Start: 1990 Sex Assigned At Female [facility] Start: 11-08-2022 Tobacco use and exposure Smokeless tobacco non-user [facility] Start: 04-15-2024 Alcoholic beverage intake Current drinker of alcohol (finding) [facility] Start: 04-15-2024 History of Social function [facility] Start: 04-15-2024 Tobacco use panel [facility] Start: 12-02-2022 Alcohol Comment caffeine intake: yes [facility] Start: 11-08-2022 Gender identity Identifies as female gender (finding) [facility] NEGATED: Highlighted row [facility] Clinical Notes 08-11-2022 to 04-15-2024 Yen Rocha NP - 04/15/2024 9:35 AM EDT Note Date & Type Note Facility 04-15-2024 History of Present illness Narrative HPI: Historian of HPI: patient Corbin Umana is a 33 y.o. female who presents today to the Urgent Care with the following complaints and denials which have been present for 10 day(s) C/O Denies Symptom Comments [x] [] Runny Nose [] [x] Difficulty Swallowing [x] [] Sore Throat [x] [] Cough [] [x] Ear Pain [] [x] Fever [] [x] Chills [x] [] Nasal Congestion [] [x] Myalgia [] [x] Sinus Pain [] [x] Sinus Pressure Additional Comments: Pt states she and children have all been sick with similar symptoms. Pt c/o chest feeling on fire . She is coughing. ROS: A complete system ROS was performed and negative aside from the pertinent positives noted in the HPI and PE. Visit Vitals Pulse 90 Temp 98.1 F Wt 230 lb SpO2 99% BMI 38.87 kg/m OB Status Having periods Smoking Status Never BSA 2.18 m Physical Exam Vitals reviewed. Constitutional: General: She is not in acute distress. Appearance: Normal appearance. HENT: Head: Normocephalic and atraumatic. Right Ear: Hearing, tympanic membrane, ear canal and external ear normal. Left Ear: Hearing, tympanic membrane, ear canal and external ear normal. Nose: Congestion present. Right Turbinates: Enlarged and swollen. Left Turbinates: Enlarged and swollen. Mouth/Throat: Lips: [place]. Mouth: Mucous membranes are moist. Pharynx: Oropharynx is clear. Uvula midline. Posterior oropharyngeal erythema present. Tonsils: No tonsillar exudate or tonsillar abscesses. Eyes: Extraocular Movements: Extraocular movements intact. Conjunctiva/sclera: Conjunctivae normal. Pupils: Pupils are equal, round, and reactive to light. Cardiovascular: Rate and Rhythm: Normal rate and regular rhythm. Pulses: Normal pulses. Heart sounds: Normal heart sounds. Pulmonary: Effort: Pulmonary effort is normal. No respiratory distress. Breath sounds: Normal breath sounds. No wheezing, rhonchi or rales. Musculoskeletal: General: Normal range of motion. Cervical back: Normal range of motion and neck supple. Skin: General: Skin is warm and dry. Findings: No rash. Neurological: General: No focal deficit present. Mental Status: She is alert and oriented to person, place, and time. Psychiatric: Mood and Affect: Mood normal. Behavior: Behavior normal. Thought Content: Thought content normal. Judgment: Judgment normal. IH Testin. Acute cough (Primary) She presents today for evaluation of sick symptoms x 10 days. She reports her daughter was tested for COVID 19 and Influenza A/B and all were negative. New medication as directed. Acetaminophen or Ibuprofen for reduction of fever and pain. Increase fluids. Good handwashing. Discussed warning signs of worsening infection and when to report to ER. New toothbrush in 24 hours. Call office if symptoms have not started to improve within the next 72 hours. Patient verbalized understanding of instructions. - amoxicillin-clavulanate (Augmentin) 875-125 MG tablet; Take 1 tablet (875 mg) by mouth in the morning and 1 tablet (875 mg) before bedtime. Do all this for 10 days. Dispense: 20 tablet; Refill: 0 2. Acute non-recurrent maxillary sinusitis Will treat with ATBx given duration of sx. Medication, implications, and side effects discussed. Report any side effects to PCP immediately. Take with food. Change or sterilize toothbrush 24 hours after starting ATB. OTC meds symptomatically and push fluids. The patient will let us know if sx worsen, change, or fail to improve in the next 5-7 days. Signs/symptoms and red flags of when to seek emergent medical attention discussed. Patient expressed an understanding. - amoxicillin-clavulanate (Augmentin) 875-125 MG tablet; Take 1 tablet (875 mg) by mouth in the morning and 1 tablet (875 mg) before bedtime. Do all this for 10 days. Dispense: 20 tablet; Refill: 0 documented in this encounter [facility] 09-30-2022 Note OPERATIVE NOTE OPERATION DATE: 09/30/2022 PREOPERATIVE DIAGNOSIS: 1. Intrauterine at 37 weeks. 2. Previous history of preeclampsia which was severe in nature. 3. History of previous . 4. History of IUGR. POSTOPERATIVE DIAGNOSIS: 1. Intrauterine at 37 weeks. 2. Previous history of preeclampsia which was severe in nature. 3. History of previous . 4. History of IUGR. PROCEDURE: Repeat low transverse section. ANESTHESIA: Spinal with Duramorph. SURGEON: Alicia Koch D.O. FINE ARTS MODEL: STEVE Israel URINE OUTPUT: Yellow and clear. BLOOD LOSS: 575 mL. SPECIMEN: Placenta. FINDINGS: Viable male. Apgars 9 at 1, 9 at 5. Weight unknown at this time. PROCEDURE: Patient was taken back to the Operating Room where she was given a spinal anesthesia with Duramorph without difficulty. She was prepped and draped in the normal sterile fashion. A Pfannenstiel skin incision was then made 2 cm above the symphysis pubis and carried down to underlying rectus fascia using a Bovie. The fascia was incised in the midline and extended laterally using Skinner scissors. Two Katina clamps were placed on the superior aspect of the fascia and dissected off the underlying rectus muscles. The same was performed on the inferior aspect as well. The muscles were then in the midline. Peritoneum was identified and entered bluntly. The peritoneum was then extended superiorly and inferiorly with good visualization of the bladder. The bladder blade was inserted. Vesicouterine peritoneum was identified, tented up, and entered with Metzenbaum scissors. A bladder flap was then created digitally. The bladder blade was reinserted. A low transverse incision was made on the patient's uterus and extended laterally digitally. The infant was then delivered atraumatically after the bladder blade was removed in the cephalic position. The cord was clamped and cut. Cord blood was obtained. The was handed off to awaiting team. The patient's placenta was spontaneously delivered. The uterus was then exteriorized. The uterus was cleared of all clots and debris. The bladder blade was reinserted. The patient's uterine incision was closed using #0 Vicryl in a running lock fashion. Excellent hemostasis was assured. The uterus was then returned to the patient's abdomen. The patient's abdomen was copiously irrigated using warm saline. Peritoneal gutters were cleared of all clots and debris. Again excellent hemostasis was assured. The patient's peritoneum was closed using 3-0 Vicryl in a running fashion. The patient's fascia was closed using #0 Vicryl in a running fashion. The patient's skin was closed using 4-0 Vicryl subcuticularly. The patient tolerated the procedure well. Sponge, lap, and needle counts were correct x2. The patient was taken to the Recovery Room in stable condition. [facility] 09-15-2022 Note Cardiology Progress Note - [facility] Reason for visit: Palpitations, lightheadedness, dizziness HPI: Corbin Umana is a 31 y.o. year old with past medical history of palpitations, preeclampsia with pregnancies. She is here regarding heart palpitations which tend to have associated lightheadedness and dizziness. This is her second . In her first she began to have palpitations and preeclampsia. She was treated with labetalol and nifedipine in the past. She did not seem to tolerate labetalol very well and had facial flushing and bradycardia. She states after her first the palpitations never went away but they have now been causing presyncopal symptoms such as lightheadedness and dizziness. She is not aware of any triggers, she states they can happen at rest with postural changes and are very random. 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 She has never seen a toddler nanny, she has never had an event monitor or Holter monitor, and has never had an echocardiogram done. She has never had any cardiac testing. Today she is normotensive with no concerns of high blood pressure. ECG shows sinus rhythm. 09/15/2022 -Since last seen she underwent an ECHO and wore a holter monitor. -She is currently 35 weeks . She is scheduled for a in 2 weeks. -Her OB started her on Procardia and her sx's have improved, she is having less palpitations and less accompanied sx's. She is hoping to not have to continue to take the medication after . -She denies CP, dyspnea, syncope. PMH: Past Medical History: Diagnosis Date Preeclampsia PSH: Past Surgical History: Procedure Laterality Date SECTION, CLASSIC SH: Social Determinants of Health Intimate Partner Violence: Not on file Social Connections: Not on file Alcohol Use: Not on file Tobacco Use: Low Risk Smoking Tobacco Use: Never Smokeless Tobacco Use: Never Passive Exposure: Not on file Financial Resource Strain: Not on file Depression: Not on file Depression: Not on file Stress: Not on file Physical Activity: Not on file Food Insecurity: Not on file Transportation Needs: Not on file Allergies: Allergies Allergen Reactions Betamethasone Weight: 110kg Visit Vitals BP 134/86 (BP Location: Left arm, Patient Position: Sitting) Pulse 103 Ht 1.626 m (5' 4 ) Wt 110 kg (242 lb) SpO2 99% BMI 41.54 kg/m??? OB Status Smoking Status Never BSA 2.23 m??? Meds: Current Outpatient Medications on File Prior to Visit Medication Sig Dispense Refill aspirin 81 mg EC tablet Take 81 mg by mouth in the morning. NIFEdipine (Procardia) 20 mg capsule TAKE 1 CAPSULE BY MOUTH NEEDED EVERY 6 HOURS FOR 30 DAYS NIFEdipine XL (Procardia XL) 30 mg 24 hr tablet Take 30 mg by mouth in the morning. PNV 119-iron fum-folic acid ( 19) 29 mg iron- 1 mg tablet Take by mouth. Pro Fe 180 mg iron capsule Take 1 capsule by mouth in the morning. No current facility-administered medications on file prior to visit. ROS: Cardio Basic Cardiovascular Symptoms: +palpitations, + leg edema, no syncope, no orthopnea, no PND, no claudication, Constitutional Constitutional: no fever, no night sweats, no significant weight gain, no significant weight loss, no exercise intolerance Eyes Eyes: no dry eyes, no irritation, no vision change ENMT Ears: no difficulty hearing, no ear pain Nose: no frequent nosebleeds, Mouth/Throat: no sore throat, no bleeding gums, no snoring, no dry mouth, no mouth ulcers, no oral abnormalities, no teeth problems Respiratory Respiratory: no cough, no wheezing, no coughing up blood, no sleep apnea Musculoskeletal Musculoskeletal: no muscle aches, no muscle weakness, joint pain+, no back pain, no swelling in the extremities Integumentary Skin no rash, no ulcer, no varicosities, no discoloration, no pruritus Neurologic Neurologic: no loss of consciousness, no weakness, no numbness, no seizures, no dizziness, no headaches Psychiatric Psych: no depression, feeling safe in relationship, no alcohol abuse, Hematologic/Lymphatic Hematologic/Lymphatic no swollen glands, no bruising Physical Exam: Constitutional General Appearance: well-nourished, well-developed, appears stated age Level of Distress: comfortable Psychiatric Mental Status: alert, normal affect Orientation: oriented to time, place, and person Insight: good judgement Eyes Lids and Conjunctivae: non-injected, no xanthelasma ENMT Ears: no lesions on external ear Nose: no lesions on external nose Oropharynx: no cyanosis, no pallor Neck Neck: supple, trachea midline Carotid Arteries: bilateral normal upstroke, no bruits Jugular Veins: normal jugular venous pressure Thyroid: not enlarged Lungs Respiratory Effort: unlabored Chest Exam: no (more content not included)... [facility] 09-15-2022 Note Patient here for fol low up echo and Holter monitor. Her MATERIALS DEVELOPMENT ENGINEER started her on Procardia 2 weeks ago and palpitations have significantly decreased. Lightheadedness has resolved since then. Review of Systems Cardiovascular: Positive for leg swelling and palpitations. Neurological: Positive for headaches. All other systems reviewed and are negative. [facility] 08-11-2022 Note -30 weeks -Will order 72-hour Holter monitor -We will order echocardiogram for presyncope/lightheadedness/dizzin ess and palpitations -She is currently taking aspirin 81 mg for preeclampsia [facility] 08-11-2022 Note [facility]rophysiology Consult Note Reason for visit: Palpitations, lightheadedness, dizziness HPI: Corbin Umana is a 31 y.o. year old with past medical history of palpitations, preeclampsia with pregnancies. She is here regarding heart palpitations which tend to have associated lightheadedness and dizziness. This is her second . In her first she began to have palpitations and preeclampsia. She was treated with labetalol and nifedipine in the past. She did not seem to tolerate labetalol very well and had facial flushing and bradycardia. She states after her first the palpitations never went away but they have now been causing presyncopal symptoms such as lightheadedness and dizziness. She is not aware of any triggers, she states they can happen at rest with postural changes and are very random. 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 She has never seen a toddler nanny, she has never had an event monitor or Holter monitor, and has never had an echocardiogram done. She has never had any cardiac testing. Today she is normotensive with no concerns of high blood pressure. ECG shows sinus rhythm. PMH: Past Medical History: Diagnosis Date Preeclampsia PSH: Past Surgical History: Procedure Laterality Date SECTION, CLASSIC SH: Social Determinants of Health Tobacco Use: Low Risk Smoking Tobacco Use: Never Smokeless Tobacco Use: Never Passive Exposure: Not on file Alcohol Use: Not on file Financial Resource Strain: Not on file Food Insecurity: Not on file Transportation Needs: Not on file Physical Activity: Not on file Stress: Not on file Social Connections: Not on file Intimate Partner Violence: Not on file Depression: Not on file Housing Stability: Not on file Allergies: No Known Allergies Weight: 108kg Visit Vitals BP 120/77 (BP Location: Left arm, Patient Position: Standing) Pulse 99 Ht 1.626 m (5' 4 ) Wt 108 kg (239 lb) SpO2 98% BMI 41.02 kg/m??? Smoking Status Never BSA 2.21 m??? Meds: Current Outpatient Medications on File Prior to Visit Medication Sig Dispense Refill aspirin 81 mg EC tablet Take 81 mg by mouth in the morning. PNV 119-iron fum-folic acid ( 19) 29 mg iron- 1 mg tablet Take by mouth. Pro Fe 180 mg iron capsule Take 1 capsule by mouth in the morning. No current facility-administered medications on file prior to visit. ROS: Cardio Basic Cardiovascular Symptoms: +lightheadedness/dizziness/palpit ations, no leg edema, no syncope, no orthopnea, no PND, no claudication, Constitutional Constitutional: no fever, no night sweats, no significant weight gain, no significant weight loss, no exercise intolerance Eyes Eyes: no dry eyes, no irritation, no vision change ENMT Ears: no difficulty hearing, no ear pain Nose: no frequent nosebleeds, Mouth/Throat: no sore throat, no bleeding gums, no snoring, no dry mouth, no mouth ulcers, no oral abnormalities, no teeth problems Respiratory Respiratory: no cough, no wheezing, no coughing up blood, no sleep apnea Musculoskeletal Musculoskeletal: no muscle aches, no muscle weakness, joint pain+, no back pain, no swelling in the extremities Integumentary Skin no rash, no ulcer, no varicosities, no discoloration, no pruritus Neurologic Neurologic: no loss of consciousness, no weakness, no numbness, no seizures, no dizziness, no headaches Psychiatric Psych: no depression, feeling safe in relationship, no alcohol abuse, Hematologic/Lymphatic Hematologic/Lymphatic no swollen glands, no bruising Physical Exam: Constitutional General Appearance: well-nourished, well-developed, appears stated age Level of Distress: comfortable Psychiatric Mental Status: alert, normal affect Orientation: oriented to time, place, and person Insight: good judgement Eyes Lids and Conjunctivae: non-injected, no xanthelasma ENMT Ears: no lesions on external ear Nose: no lesions on external nose Oropharynx: no cyanosis, no pallor Neck Neck: supple, trachea midline Carotid Arteries: bilateral normal upstroke, no bruits Jugular Veins: normal jugular venous pressure Thyroid: not enlarged Lungs Respiratory Effort: unlabored Chest Exam: normal curvature, no thoracic deformity Auscultation: clear, no wheezing, no rales, no rhonchi Cardiovascular Rate And Rhythm: regular Heart Sounds: normal S1, normal s2, no gallop Systolic Murmur: not heard Diastolic Murmur: not heard Extremities: no cyanosis, no edema, no peripheral signs of emboli Peripheral Pulses Radial Pulse: normal Abdomen Inspection and Palpation: soft, non distended, no bruit, non tender Musculoskeletal Inspection: no joint swelling Neurologic Gait: normal gait Skin Inspection and Palpation: warm and dry Nails: no clubbing Labs: 05/08/2022 labs reviewed, no conc (more content not included)... [facility] 08-11-2022 Note New patient here to establish care. Ref from Dr. Koch (MATERIALS DEVELOPMENT ENGINEER) for palpitations and near-syncope in . She is currently 30 weeks along. She was preeclamptic with her first child in 2020. She didn't tolerate labetalol well so she was switched to nifedipine. Review of Systems Cardiovascular: Positive for near-syncope and palpitations. Neurological: Positive for headaches and light-headedness. All other systems reviewed and are negative. [facility] Evaluation note No assessment inform ation available [facility] Work Phone: Evaluation note Diagnosis Onset Date Internal derangement of right knee acute [facility] Work Phone: Evaluation note* Diagnosis Onset Date Resolution Status Internal derangement of right knee acute Internal derangement of right knee acute [facility] Work Phone: Evaluation note* Diagnosis Acute cough- Primary Acute non-recurrent maxillary sinusitis documented in [facility] Additional Instructions Rest ice elevate May use Tylenol or Motrin for discomfort Wear the knee immobilizer and crutches for getting around and to help stabilize support the knee Follow-up with [facility] Return to the ER for worsening pain significant swelling of the knee or any other [facility] Work Phone: Summary Purpose Family History No Family History Records FoundNo Family History Records FoundNo Family History Records FoundNo Family History Records Found Advance Directives Advance Directive Response Recorded Date/ Time Advance Directives No April 12, 2018 1:21pm Chief Complaint and Reason for Visit Chief Complaint rt knee inj, @ home 12-11-23 Chief Complaint rt knee inj, @ [place] 12[place]11-23 [place] [facility] [place] Reason for Visit Internal derangement of right knee Chief Complaint rt knee inj, @ home 12-11-23 [place] [facility] [place] M23.91 Reason for Visit Internal derangement of right knee Chief Complaint rt knee inj, @ home 12-11-[facility] M23.91 MRI RESULTS Reason for Visit Internal derangement of right knee Internal derangement of right knee Additional Source Comments INFORMATION SOURCE (unrecogn ized section and content) DATE CREATED AUTHOR 09/16/2022 [facility] DATE CREATED AUTHOR AUTHOR'S ORGANIZ ATION 10/18/2022 [facility] DATE CREATED AUTHOR AUTHOR'S ORGANIZ ATION 12/27/2023 [facility] DATE CREATED AUTHOR AUTHOR'S ORGANIZ ATION 04/16/2024 [facility] EP[employer] Care Teams (unrecognized sec tion and content) Team Status: Active Member Role Status Dates Cale Monique DO Primary Care Provider Active Team Status: Inactive Member Role Status Dates Cale Monique DO Primary Care Provider Active Sta rt: December 11, 2023 End: December 11, 2023 DENISE Rangel- Emergency Provider Active Start: December 11, 2023 End: December 11, 2023 Team Status: Inactive Member Role Status Dates Cale Monique DO Primary Care Provider Active Sta rt: December 14, 2023 End: December 14, 2023 Anselmo Rodney DO Attending Provider Active S tart: December 14, 2023 End: December 14, 2023 Team Status: Inactive Member Role Status Dates Cale Monique DO Primary Care Provider Active Sta rt: January 19, 2024 End: January 19, 2024 Anselmo Rodney DO Attending Provider Active S tart: January 19, 2024 End: January 19, 2024 Team Status: Inactive Member Role Status Dates Cale Monique DO Primary Care Provider Active Sta rt: January 23, 2024 End: January 23, 2024 Anselmo Rodney DO Attending Provider Active S tart: January 23, 2024 End: January 23, 2024 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 This clinical summary was aggregated from multiple sources. Caution should be exercised in using it in the provision of clinical care. This summary normalizes information from multiple sources, and as a consequence, information in this document may materially change the coding, format and clinical context of patient data. In addition, data may be omitted in some cases. CLINICAL DECISIONS SHOULD BE BASED ON THE PRIMARY CLINICAL RECORDS. [facility] [employer] provides no warranty or guarantee of the accuracy or completeness of information in this document.
[2024-07-31 16:08] LABS: Age Gdln ACOG Testing Note (.); HPV Aptima Negative (Negative); IGP, Aptima HPV, rfx 16/18,45 Note (.)
== END 2024-07-25 21:27 | disposition home or self-care (01) ==
LOC: LAB 21:26
PROVIDERS: Visit Provider Obstetrics & Gynecology
DX: Z01.419 Encounter for gynecological examination (general) (routine) without abnormal findings (principal)
CPT/HCPCS: 87624; 88175